=== PATIENT | female | born 1995 | race Caucasian/White ===

== ENCOUNTER 2016-10-24 16:37 | Emergency (ER) | payer MEDICAID ==
[~2016-10-24] VITALS: Ht 162.6 cm; Wt 117.9 kg
[~2016-10-24 16:37] MED LIST: ACHD5005 PO; AMOX500C2 PO; CEPH-507 PO; DEPO; DOXY100C2 PO; FAMO-119 PO; FLUT9.9S NSEACH; HYDR-3812 PO; HYDR-707 PO; METHYLERGONOVINE 0.2 MG PO; NAPR-243 PO; NITR-65 PO; OMEP20CA12 PO; PRD20T PO; PREN-93 PO; RANI25VI2 IJ
--- OUTSIDE RECORDS SUMMARY | 2016-10-24 16:46 | XMS REPORT ---
Author Author JENNY SHINE Organization [facility] Address [address] [place] [address] Care Team Providers Care Rn Angiography Name Role Phone JENNY SHINE Unavailable PROBLEMS Type Condition ICD9-CM Code [id number] Code Onset Dates Condition Status SNOMED Code Problem Contact dermatitis and other eczema, due to unspecified cause 692.9 Active 42522294 Problem Cellulitis and abscess of leg, except foot 682.6 Active 764158360 Problem Candidiasis of skin and nails 112.3 Active 786217618 Problem Supervision of normal first V22.0 Active 381450100 Problem Need for prophylactic vaccination and inoculation, Influenza V04.81 Active 325773879 Problem Dizziness and giddiness 780.4 Active 092844587 Problem Acute tonsillitis 463 Active 07101075 Problem examination or test, negative result V72.41 Active 526103769 Problem Attention deficit disorder of childhood without mention of hyperactivity 314.00 Active 94601805 Problem Surveillance of other previously prescribed contraceptive method V25.49 Active 834817699 Problem Dysthymic disorder 300.4 Active 63559962 Assessment test positive Z32.01 20 Dec, 2016 Active 670795298 Problem Other malaise and fatigue 780.79 Active 763762318 Problem Acute sinusitis, unspecified 461.9 Active 77756697 Problem Unspecified gastritis and gastroduodenitis without mention of hemorrhage 535.50 Active 185068818 Problem Other general counseling and advice for contraceptive management V25.09 Active 644523024 Problem Cough 786.2 Active 82120777 Problem examination or test, positive result V72.42 Active 500917174 ALLERGIES No Known Allergies SOCIAL HISTORY No smoking Hx information available PLAN OF CARE VITAL SIGNS MEDICATIONS No Known Medications RESULTS Name Result Date Reference Range TEST, URINE (IN HOUSE) 2016-01-03 RESULTS POSITIVE Lot # [id number] Control + Exp date Jun 2017 PROCEDURES Procedure Date Ordered Related Diagnosis Body Site URINE TEST Jan 03, 2016 IMMUNIZATIONS No Known Immunizations
--- OUTSIDE RECORDS SUMMARY | 2016-10-24 16:46 | XMS REPORT ---
Author Author ERMA JAMES Organization [employer] Address Unknown Phone Unavailable Care Team Providers Care Heel Lining Paster Name Role Phone ERMA JAMES CP Unavailable Allergies, Adverse Reactions, Alerts Substance Reaction Event Type N.K.D.A. Info Not Available Non Drug Allergy Problems Problem Type Condition Code Onset Dates Condition Status Problem examination or test, positive result V72.42 Active Problem Candidiasis of skin and nails 112.3 Active Problem Contact dermatitis and other eczema, due to unspecified cause 692.9 Active Problem Need for prophylactic vaccination and inoculation, Influenza V04.81 Active Problem examination or test, negative result V72.41 Active Problem Supervision of normal first V22.0 Active Problem Acute tonsillitis 463 Active Problem Cellulitis and abscess of leg, except foot 682.6 Active Problem Attention deficit disorder of childhood without mention of hyperactivity 314.00 Active Problem Dizziness and giddiness 780.4 Active Problem Surveillance of other previously prescribed contraceptive method V25.49 Active Problem Cough 786.2 Active Problem Other malaise and fatigue 780.79 Active Problem Dysthymic disorder 300.4 Active Problem Acute sinusitis, unspecified 461.9 Active Problem Unspecified gastritis and gastroduodenitis without mention of hemorrhage 535.50 Active Problem Other general counseling and advice for contraceptive management V25.09 Active Medications Medication Code System Code Instructions Start Date End Date Status Dosage Folic Acid [facility] [address]-64 1 MG Orally Once a day 3 tablet Progesterone Micronized [facility] [address]-23 200 MG Orally Once a day 1 capsule at bedtime Vitamin [facility] [address]4051-52451 27-0.8 MG Orally not defined Results No Known Results Summary Purpose [employer] Submission
--- OUTSIDE RECORDS SUMMARY | 2016-10-24 16:48 | XMS REPORT | Continuity of Care Document ---
Author Author [facility] Address Unknown Phone Unavailable Allergies Active Description Code Type Severity Reaction Onset Reported/Identified Relationship to Patient Clinical Status Yes No Known Drug Allergies [id number] Drug Allergy Unknown N/ A 01/22/2016 Medications Problems Date Dx Coded Attending Type Code Diagnosis Diagnosed By 12/17/2007 V20.2 Well Child, Routine 12/17/2007 CESIA REGAN DO V20.2 Well Child, Routine 12/17/2007 V20.2 Well Child, Routine 12/17/2007 GABBY GARDNER APRN V20.2 Well Child, Routine 12/17/2007 GABBY GARDNER APRN V20.2 Well Child, Routine 12/17/2007 JENNY SHINE APRN V20.2 Well Child, Routine 12/17/2007 V20.2 Well Child, Routine 12/17/2007 V20.2 Well Child, Routine 12/17/2007 SHASHA GUTIERREZ APRN V20.2 Well Child, Routine 12/17/2007 CESIA REGAN DO V20.2 Well Child, Routine 12/17/2007 GABBY GARDNER APRN R V20.2 Well Child, Routine 12/17/2007 JENNY SHINE APRN V20.2 Well Child, Routine 12/17/2007 CESIA REGAN DO V20.2 Well Child, Routine 12/17/2007 NIKKI LAZARO APRN V20.2 Well Child, Routine 12/22/2007 132.0 Lice Head 12/22/2007 382.00 Otitis Media Acute Without Spontaneous Rupture Eardrum 12/22/2007 709.9 Dermatitis Other Skin Disorders 12/22/2007 CESIA REGAN DO 132.0 Lice Head 12/22/2007 CESIA REGAN DO 382.00 Otitis Media Acute Without Spontaneous Rupture Eardrum 12/22/2007 CESIA REGAN DO 709.9 Dermatitis Other Skin Disorders 12/22/2007 132.0 Lice Head 12/22/2007 382.00 Otitis Media Acute Without Spontaneous Rupture Eardrum 12/22/2007 709.9 Dermatitis Other Skin Disorders 12/22/2007 GABBY GARDNER APRN R 132.0 Lice Head 12/22/2007 CEHLSEA GARDNER APRNIA R 382.00 Otitis Media Acute Without Spontaneous Rupture Eardrum 12/22/2007 GABBY GARDNER APRN R 709.9 Dermatitis Other Skin Disorders 12/22/2007 CHELSEA GARDNER APRNIA R 132.0 Lice Head 12/22/2007 CHELSEA GARDNER APRNIA R 382.00 Otitis Media Acute Without Spontaneous Rupture Eardrum 12/22/2007 GABBY GARDNER APRN R 709.9 Dermatitis Other Skin Disorders 12/22/2007 JENNY SHINE APRN S 132.0 Lice Head 12/22/2007 JENNY SHINE APRN S 382.00 Otitis Media Acute Without Spontaneous Rupture Eardrum 12/22/2007 JENNY SHINE APRN S 709.9 Dermatitis Other Skin Disorders 12/22/2007 132.0 Lice Head 12/22/2007 382.00 Otitis Media Acute Without Spontaneous Rupture Eardrum 12/22/2007 709.9 Dermatitis Other Skin Disorders 12/22/2007 132.0 Lice Head 12/22/2007 382.00 Otitis Media Acute Without Spontaneous Rupture Eardrum 12/22/2007 709.9 Dermatitis Other Skin Disorders 12/22/2007 SHASHA GUTIERREZ APRN 132.0 Lice Head 12/22/2007 SHASHA GUTIERREZ APRN 382.00 Otitis Media Acute Without Spontaneous Rupture Eardrum 12/22/2007 SHASHA GUTIERREZ APRN 709.9 Dermatitis Other Skin Disorders 12/22/2007 REGAN DO CESIA K 132.0 Lice Head 12/22/2007 REGAN DO CESIA K 382.00 Otitis Media Acute Without Spontaneous Rupture Eardrum 12/22/2007 REGAN DO CESIA K 709.9 Dermatitis Other Skin Disorders 12/22/2007 GABBY GARDNER APRN R 132.0 Lice Head 12/22/2007 GABBY GARDNER APRN R 382.00 Otitis Media Acute Without Spontaneous Rupture Eardrum 12/22/2007 GARDNER CROWN PRESSER, GABBY R 709.9 Dermatitis Other Skin Disorders 12/22/2007 FÁTIMA CAIN, JENNY S 132.0 Lice Head 12/22/2007 FÁTIMAMARILYN CAIN, JENNY S 382.00 Otitis Media Acute Without Spontaneous Rupture Eardrum 12/22/2007 FÁTIMAMARILYN CAIN, JENNY S 709.9 Dermatitis Other Skin Disorders 12/22/2007 REGAN DO CESIA K 132.0 Lice Head 12/22/2007 REGAN DO, CESIA K 382.00 Otitis Media Acute Without Spontaneous Rupture Eardrum 12/22/2007 REGAN DO, CESIA K 709.9 Dermatitis Other Skin Disorders 12/22/2007 TEJAS CROWN PRESSER, NIKKI A 132.0 Lice Head 12/22/2007 TEJAS CROWN PRESSER, NIKKI A 382.00 Otitis Media Acute Without Spontaneous Rupture Eardrum 12/22/2007 TEJAS CAIN, NIKKI A 709.9 Dermatitis Other Skin Disorders 01/22/2008 465.9 Upper Respiratory Infection 01/22/2008 787.03 Vomiting Alone 01/22/2008 DELILAH REGAN DOA K 465.9 Upper Respiratory Infection 01/22/2008 DELILAH REGAN DOA K 787.03 Vomiting Alone 01/22/2008 465.9 Upper Respiratory Infection 01/22/2008 787.03 Vomiting Alone 01/22/2008 CHELSEA GARDNER APRNIA R 465.9 Upper Respiratory Infection 01/22/2008 CHELSEA GARDNER APRNIA R 787.03 Vomiting Alone 01/22/2008 CHELSEA GARDNER APRNIA R 465.9 Upper Respiratory Infection 01/22/2008 GABBY GARDNER APRN R 787.03 Vomiting Alone 01/22/2008 IESHA SHINE APRNNDA S 465.9 Upper Respiratory Infection 01/22/2008 FÁTIMA MOTTA JENNY S 787.03 Vomiting Alone 01/22/2008 465.9 Upper Respiratory Infection 01/22/2008 787.03 Vomiting Alone 01/22/2008 465.9 Upper Respiratory Infection 01/22/2008 787.03 Vomiting Alone 01/22/2008 SHASHA GUTIERREZ APRN 465.9 Upper Respiratory Infection 01/22/2008 SHASHA GUTIERREZ APRN 787.03 Vomiting Alone 01/22/2008 CESIA REGAN DO K 465.9 Upper Respiratory Infection 01/22/2008 DELILAH REGAN DOA K 787.03 Vomiting Alone 01/22/2008 CHELSEA GARDNER APRNIA R 465.9 Upper Respiratory Infection 01/22/2008 GABBY GARDNER APRN R 787.03 Vomiting Alone 01/22/2008 IESHA SHINE APRNNDA S 465.9 Upper Respiratory Infection 01/22/2008 IESHA SHINE APRNNDA S 787.03 Vomiting Alone 01/22/2008 DELILAH REGAN DOA K 465.9 Upper Respiratory Infection 01/22/2008 DELILAH REGAN DOA K 787.03 Vomiting Alone 01/22/2008 TEJASTAMMIE Watt APRNIDI A 465.9 Upper Respiratory Infection 01/22/2008 TEJASTAMMIE Watt APRNIDI A 787.03 Vomiting Alone 03/23/2008 462 Pharyngitis Acute 03/23/2008 DELILAH REGAN DOA K 462 Pharyngitis Acute 03/23/2008 462 Pharyngitis Acute 03/23/2008 GABBY GARDNER APRN R 462 Pharyngitis Acute 03/23/2008 GABBY GARDNER APRN R 462 Pharyngitis Acute 03/23/2008 JENNY SHINE APRN S 462 Pharyngitis Acute 03/23/2008 462 Pharyngitis Acute 03/23/2008 462 Pharyngitis Acute 03/23/2008 SHASHA GUTIERREZ APRN 462 Pharyngitis Acute 03/23/2008 CESIA REGAN DO K 462 Pharyngitis Acute 03/23/2008 GABBY GARDNER APRN R 462 Pharyngitis Acute 03/23/2008 JENNY SHINE APRN S 462 Pharyngitis Acute 03/23/2008 DELILAH REGAN DOA K 462 Pharyngitis Acute 03/23/2008 TEJASShukri MOTTA NIKKI A 462 Pharyngitis Acute 06/02/2008 313.81 Cd Oppositional Defiant 06/02/2008 CESIA REGAN DO K 313.81 Cd Oppositional Defiant 06/02/2008 313.81 Cd Oppositional Defiant 06/02/2008 GABBY GARDNER APRN R 313.81 Cd Oppositional Defiant 06/02/2008 GABBY GARDNER APRN R 313.81 Cd Oppositional Defiant 06/02/2008 JENNY SHINE APRN S 313.81 Cd Oppositional Defiant 06/02/2008 313.81 Cd Oppositional Defiant 06/02/2008 313.81 Cd Oppositional Defiant 06/02/2008 SHASHA GUTIERREZ APRN 313.81 Cd Oppositional Defiant 06/02/2008 CESIA REGAN DO K 313.81 Cd Oppositional Defiant 06/02/2008 GABBY GARDNER APRN R 313.81 Cd Oppositional Defiant 06/02/2008 JENNY SHINE APRN S 313.81 Cd Oppositional Defiant 06/02/2008 DELILAH REGAN DOA K 313.81 Cd Oppositional Defiant 06/02/2008 NIKKI LAZARO APRN A 313.81 Cd Oppositional Defiant 06/07/2008 311 DEPRESSION 06/07/2008 DELILAH REGAN DOA K 311 DEPRESSION 06/07/2008 311 DEPRESSION 06/07/2008 CHELSEA GARDNER APRNIA R 311 DEPRESSION 06/07/2008 GABBY GARDNER APRN R 311 DEPRESSION 06/07/2008 JENNY SHINE APRN S 311 DEPRESSION 06/07/2008 311 DEPRESSION 06/07/2008 311 DEPRESSION 06/07/2008 SHASHA GUTIERREZ APRN 311 DEPRESSION 06/07/2008 REGAN DELILAH OLIVEIRAA K 311 DEPRESSION 06/07/2008 CHELSEA GARDNER APRNIA R 311 DEPRESSION 06/07/2008 PÉREZ SHINE APRNA S 311 DEPRESSION 06/07/2008 REGAN DO, CESIA K 311 DEPRESSION 06/07/2008 NIKKI LAZARO APRN A 311 DEPRESSION 07/27/2008 296.32 Mo Depressive Recurrent Moderate 07/27/2008 DELILAH REGAN DOA K 296.32 Mo Depressive Recurrent Moderate 07/27/2008 296.32 Mo Depressive Recurrent Moderate 07/27/2008 GABBY GARDNER APRN R 296.32 Mo Depressive Recurrent Moderate 07/27/2008 GABBY GARDNER APRN R 296.32 Mo Depressive Recurrent Moderate 07/27/2008 JENNY SHINE APRN S 296.32 Mo Depressive Recurrent Moderate 07/27/2008 296.32 Mo Depressive Recurrent Moderate 07/27/2008 296.32 Mo Depressive Recurrent Moderate 07/27/2008 SHASHA GUTIERREZ APRN 296.32 Mo Depressive Recurrent Moderate 07/27/2008 CESIA REGAN DO K 296.32 Mo Depressive Recurrent Moderate 07/27/2008 GABBY GARDNER APRN R 296.32 Mo Depressive Recurrent Moderate 07/27/2008 JENNY SHINE APRN S 296.32 Mo Depressive Recurrent Moderate 07/27/2008 CESIA REGAN DO K 296.32 Mo Depressive Recurrent Moderate 07/27/2008 NIKKI LAZARO APRN A 296.32 Mo Depressive Recurrent Moderate 08/02/2008 493.02 Asthma Extrinsic - With Acute Exacerbation 08/02/2008 CESIA REGAN DO K 493.02 Asthma Extrinsic - With Acute Exacerbation 08/02/2008 493.02 Asthma Extrinsic - With Acute Exacerbation 08/02/2008 GABBY GARDNER APRN R 493.02 Asthma Extrinsic - With Acute Exacerbation 08/02/2008 GABBY GARDNER APRN R 493.02 Asthma Extrinsic - With Acute Exacerbation 08/02/2008 JENNY SHINE APRN 493.02 Asthma Extrinsic - With Acute Exacerbation 08/02/2008 493.02 Asthma Extrinsic - With Acute Exacerbation 08/02/2008 493.02 Asthma Extrinsic - With Acute Exacerbation 08/02/2008 SHASHA GUTIERREZ APRN 493.02 Asthma Extrinsic - With Acute Exacerbation 08/02/2008 CESIA REGAN DO K 493.02 Asthma Extrinsic - With Acute Exacerbation 08/02/2008 GABBY GARDNER APRN R 493.02 Asthma Extrinsic - With Acute Exacerbation 08/02/2008 JENNY SHINE APRN S 493.02 Asthma Extrinsic - With Acute Exacerbation 08/02/2008 CESIA REGAN DO K 493.02 Asthma Extrinsic - With Acute Exacerbation 08/02/2008 NIKKI LAZARO APRN A 493.02 Asthma Extrinsic - With Acute Exacerbation 09/10/2008 477.9 ALLERGIC RHINITIS 09/10/2008 CESIA REGAN DO K 477.9 ALLERGIC RHINITIS 09/10/2008 477.9 ALLERGIC RHINITIS 09/10/2008 GABBY GARDNER APRN 477.9 ALLERGIC RHINITIS 09/10/2008 GABBY GARDNER APRN 477.9 ALLERGIC RHINITIS 09/10/2008 JENNY SHINE APRN 477.9 ALLERGIC RHINITIS 09/10/2008 477.9 ALLERGIC RHINITIS 09/10/2008 477.9 ALLERGIC RHINITIS 09/10/2008 SHASHA GUTIERREZ APRN 477.9 ALLERGIC RHINITIS 09/10/2008 CESIA REGAN DO 477.9 ALLERGIC RHINITIS 09/10/2008 GABBY GARDNER APRN 477.9 ALLERGIC RHINITIS 09/10/2008 JENNY SHINE APRN 477.9 ALLERGIC RHINITIS 09/10/2008 CESIA REGAN DO 477.9 ALLERGIC RHINITIS 09/10/2008 NIKKI LAZARO APRN A 477.9 ALLERGIC RHINITIS 12/09/2008 V25.49 Gynecologic Service Prescrip Of Contracept Agent - Repeat Rx 12/09/2008 CESIA REGAN DO V25.49 Gynecologic Service Prescrip Of Contracept Agent - Repeat Rx 12/09/2008 V25.49 Gynecologic Service Prescrip Of Contracept Agent - Repeat Rx 12/09/2008 GABBY GARDNER APRN V25.49 Gynecologic Service Prescrip Of Contracept Agent - Repeat Rx 12/09/2008 GABBY GARDNER APRN V25.49 Gynecologic Service Prescrip Of Contracept Agent - Repeat Rx 12/09/2008 JENNY SHINE APRN V25.49 Gynecologic Service Prescrip Of Contracept Agent - Repeat Rx 12/09/2008 V25.49 Gynecologic Service Prescrip Of Contracept Agent - Repeat Rx 12/09/2008 V25.49 Gynecologic Service Prescrip Of Contracept Agent - Repeat Rx 12/09/2008 SHASHA GUTIERREZ APRN V25.49 Gynecologic Service Prescrip Of Contracept Agent - Repeat Rx 12/09/2008 CESIA REGAN DO V25.49 Gynecologic Service Prescrip Of Contracept Agent - Repeat Rx 12/09/2008 GABBY GARDNER APRN V25.49 Gynecologic Service Prescrip Of Contracept Agent - Repeat Rx 12/09/2008 JENNY SHINE APRN V25.49 Gynecologic Service Prescrip Of Contracept Agent - Repeat Rx 12/09/2008 CESIA REGAN DO V25.49 Gynecologic Service Prescrip Of Contracept Agent - Repeat Rx 12/09/2008 NIKKI LAZARO APRN A V25.49 Gynecologic Service Prescrip Of Contracept Agent - Repeat Rx 12/29/2008 789.00 Abdominal Pain 12/29/2008 CESIA REGAN DO 789.00 Abdominal Pain 12/29/2008 789.00 Abdominal Pain 12/29/2008 GABBY GARDNER APRN 789.00 Abdominal Pain 12/29/2008 GABBY GARDNER APRN R 789.00 Abdominal Pain 12/29/2008 ÁFTIMA MOTTA, JENNY S 789.00 Abdominal Pain 12/29/2008 789.00 Abdominal Pain 12/29/2008 789.00 Abdominal Pain 12/29/2008 SHASHA GUTIERREZ APRN 789.00 Abdominal Pain 12/29/2008 REGAN DO, CESIA K 789.00 Abdominal Pain 12/29/2008 GABBY GARDNER APRN R 789.00 Abdominal Pain 12/29/2008 PÉREZ SHINE APRNA S 789.00 Abdominal Pain 12/29/2008 REGAN DO, CESIA K 789.00 Abdominal Pain 12/29/2008 TEJASTAMMIE GARCIA APRNIDI A 789.00 Abdominal Pain 01/19/2009 464.00 Laryngitis 01/19/2009 REGAN DELILAH OLIVEIRAA K 464.00 Laryngitis 01/19/2009 464.00 Laryngitis 01/19/2009 GABBY GARDNER APRN R 464.00 Laryngitis 01/19/2009 GABBY GARDNER APRN R 464.00 Laryngitis 01/19/2009 PÉREZ SHINE APRNA S 464.00 Laryngitis 01/19/2009 464.00 Laryngitis 01/19/2009 464.00 Laryngitis 01/19/2009 SHASHA GUTIERREZ APRN 464.00 Laryngitis 01/19/2009 REGAN DELILAH OLIVEIRAA K 464.00 Laryngitis 01/19/2009 CHELSEA GARDNER APRNIA R 464.00 Laryngitis 01/19/2009 IESHA SHINE APRNNDA S 464.00 Laryngitis 01/19/2009 REGAN DO CESIA K 464.00 Laryngitis 01/19/2009 TEJASJOSE MOTTA NIKKI A 464.00 Laryngitis 03/02/2009 289.3 Primary Lymphadenitis 03/02/2009 REGAN DO CESIA K 289.3 Primary Lymphadenitis 03/02/2009 289.3 Primary Lymphadenitis 03/02/2009 CHELSEA GARDNER APRNIA R 289.3 Primary Lymphadenitis 03/02/2009 CHELSEA GARDNER APRNIA R 289.3 Primary Lymphadenitis 03/02/2009 IESHA SHINE APRNNDA S 289.3 Primary Lymphadenitis 03/02/2009 289.3 Primary Lymphadenitis 03/02/2009 289.3 Primary Lymphadenitis 03/02/2009 SHASHA GUTIERREZ APRN 289.3 Primary Lymphadenitis 03/02/2009 REGAN DO, CESIA K 289.3 Primary Lymphadenitis 03/02/2009 GARDNER CROWN PRESSER, GABBY R 289.3 Primary Lymphadenitis 03/02/2009 FÁTIMA CROWN PRESSER, JENNY S 289.3 Primary Lymphadenitis 03/02/2009 REGAN DO, CESIA K 289.3 Primary Lymphadenitis 03/02/2009 TEJAS CROWN PRESSER, NIKKI A 289.3 Primary Lymphadenitis 03/03/2009 785.6 Lymphadenopathy 03/03/2009 REGAN DO, CESIA K 785.6 Lymphadenopathy 03/03/2009 785.6 Lymphadenopathy 03/03/2009 KENDRA CAIN, GABBY R 785.6 Lymphadenopathy 03/03/2009 KENDRA CAIN, GABBY R 785.6 Lymphadenopathy 03/03/2009 FÁTIMA CROWN PRESSER, JENNY S 785.6 Lymphadenopathy 03/03/2009 785.6 Lymphadenopathy 03/03/2009 785.6 Lymphadenopathy 03/03/2009 SHASHA GUTIERREZ APRN 785.6 Lymphadenopathy 03/03/2009 REGAN DO, CESIA K 785.6 Lymphadenopathy 03/03/2009 KENDRA CAIN, GABBY R 785.6 Lymphadenopathy 03/03/2009 FÁTIMA CROWN PRESSER, JENNY S 785.6 Lymphadenopathy 03/03/2009 REGAN DO, CESIA K 785.6 Lymphadenopathy 03/03/2009 TEJSA CROWN PRESSER, NIKKI A 785.6 Lymphadenopathy 05/20/2009 493.90 ASTHMA MODERATE PERSISTENT 05/20/2009 REGAN DO, CESIA K 493.90 ASTHMA MODERATE PERSISTENT 05/20/2009 493.90 ASTHMA MODERATE PERSISTENT 05/20/2009 ANITHA GARDNER APRNRICIA R 493.90 ASTHMA MODERATE PERSISTENT 05/20/2009 ANITHA GARDNER APRNRICIA R 493.90 ASTHMA MODERATE PERSISTENT 05/20/2009 IESHA SHINE APRNNDA S 493.90 ASTHMA MODERATE PERSISTENT 05/20/2009 493.90 ASTHMA MODERATE PERSISTENT 05/20/2009 493.90 ASTHMA MODERATE PERSISTENT 05/20/2009 SHASHA GUTIERREZ APRN 493.90 ASTHMA MODERATE PERSISTENT 05/20/2009 REGAN DO, CESIA K 493.90 ASTHMA MODERATE PERSISTENT 05/20/2009 ANITHA GARDNER APRNRICIA R 493.90 ASTHMA MODERATE PERSISTENT 05/20/2009 FÁTIMA MOTTA JENNY S 493.90 ASTHMA MODERATE PERSISTENT 05/20/2009 DELILAH REGAN DOA K 493.90 ASTHMA MODERATE PERSISTENT 05/20/2009 TEJASTAMMIE Watt APRNIDI A 493.90 ASTHMA MODERATE PERSISTENT 06/07/2009 493.92 Asthma With Acute Exacerbation 06/07/2009 DELILAH REGAN DOA K 493.92 Asthma With Acute Exacerbation 06/07/2009 493.92 Asthma With Acute Exacerbation 06/07/2009 CHELSEA GARDNER APRNIA R 493.92 Asthma With Acute Exacerbation 06/07/2009 CHELSEA GARDNER APRNIA R 493.92 Asthma With Acute Exacerbation 06/07/2009 PÉREZ SHINE APRNA S 493.92 Asthma With Acute Exacerbation 06/07/2009 493.92 Asthma With Acute Exacerbation 06/07/2009 493.92 Asthma With Acute Exacerbation 06/07/2009 SHASHA GUTIERREZ APRN 493.92 Asthma With Acute Exacerbation 06/07/2009 CESIA REGAN DO K 493.92 Asthma With Acute Exacerbation 06/07/2009 CHELSEA GARDNER APRNIA R 493.92 Asthma With Acute Exacerbation 06/07/2009 IESHA SHINE APRNNDA S 493.92 Asthma With Acute Exacerbation 06/07/2009 CESIA REGAN DO K 493.92 Asthma With Acute Exacerbation 06/07/2009 NIKKI LAZARO APRN A 493.92 Asthma With Acute Exacerbation 08/25/2009 787.91 Diarrhea 08/25/2009 CESIA REGAN DO K 787.91 Diarrhea 08/25/2009 787.91 Diarrhea 08/25/2009 ANITHA GARDNER APRNRICIA R 787.91 Diarrhea 08/25/2009 ANITHA GARDNER APRNRICIA R 787.91 Diarrhea 08/25/2009 IESHA SHINE APRNNDA S 787.91 Diarrhea 08/25/2009 787.91 Diarrhea 08/25/2009 787.91 Diarrhea 08/25/2009 SHASHA GUTIERREZ APRN 787.91 Diarrhea 08/25/2009 CESIA REGAN DO K 787.91 Diarrhea 08/25/2009 CHELSEA GARDNER APRNIA R 787.91 Diarrhea 08/25/2009 IESHA SHINE APRNNDA S 787.91 Diarrhea 08/25/2009 DELILAH REGAN DOA K 787.91 Diarrhea 08/25/2009 TEJAS CROWN PRESSER, NIKKI A 787.91 Diarrhea 11/24/2009 278.00 OBESITY UNSPECIFIED 11/24/2009 JASS OLIVEIRA CESIA K 278.00 OBESITY UNSPECIFIED 11/24/2009 278.00 OBESITY UNSPECIFIED 11/24/2009 GABBY GARDNER APRN R 278.00 OBESITY UNSPECIFIED 11/24/2009 GABBY GARDNER APRN R 278.00 OBESITY UNSPECIFIED 11/24/2009 PÉREZ SHINE APRNA S 278.00 OBESITY UNSPECIFIED 11/24/2009 278.00 OBESITY UNSPECIFIED 11/24/2009 278.00 OBESITY UNSPECIFIED 11/24/2009 SHASHA GUTIERREZ APRN 278.00 OBESITY UNSPECIFIED 11/24/2009 CESIA REGAN DO K 278.00 OBESITY UNSPECIFIED 11/24/2009 GABBY GARDNER APRN R 278.00 OBESITY UNSPECIFIED 11/24/2009 JENNY SHINE APRN S 278.00 OBESITY UNSPECIFIED 11/24/2009 DELILAH REGAN DOA K 278.00 OBESITY UNSPECIFIED 11/24/2009 NIKKI LAZARO APRN A 278.00 OBESITY UNSPECIFIED 01/03/2010 780.79 Malaise And Fatigue 01/03/2010 DELILAH REGAN DOA K 780.79 Malaise And Fatigue 01/03/2010 780.79 Malaise And Fatigue 01/03/2010 GABBY GARDNER APRN R 780.79 Malaise And Fatigue 01/03/2010 GABBY GARDNER APRN R 780.79 Malaise And Fatigue 01/03/2010 JENNY SHINE APRN S 780.79 Malaise And Fatigue 01/03/2010 780.79 Malaise And Fatigue 01/03/2010 780.79 Malaise And Fatigue 01/03/2010 SHASHA GUTIERREZ APRN 780.79 Malaise And Fatigue 01/03/2010 DELILAH REGAN DOA K 780.79 Malaise And Fatigue 01/03/2010 GABBY GARDNER APRN R 780.79 Malaise And Fatigue 01/03/2010 JENNY SHINE APRN S 780.79 Malaise And Fatigue 01/03/2010 REGAN DO, CESIA K 780.79 Malaise And Fatigue 01/03/2010 TEJAS CROWN PRESSER, NIKKI A 780.79 Malaise And Fatigue 02/28/2010 786.2 Cough 02/28/2010 V04.81 Flu Shot 02/28/2010 REGAN DO, CESIA K 786.2 Cough 02/28/2010 REGAN DO, CESIA K V04.81 Flu Shot 02/28/2010 786.2 Cough 02/28/2010 V04.81 Flu Shot 02/28/2010 KENDRA CROWN PRESSER, GABBY R 786.2 Cough 02/28/2010 GARDNER CROWN PRESSER, GABBY R V04.81 Flu Shot 02/28/2010 GARDNER CROWN PRESSER, GABBY R 786.2 Cough 02/28/2010 GARDNER CROWN PRESSER, GABBY R V04.81 Flu Shot 02/28/2010 FÁTIMA MOTTA JENNY S 786.2 Cough 02/28/2010 FÁTIMA CAIN, JENNY S V04.81 Flu Shot 02/28/2010 786.2 Cough 02/28/2010 V04.81 Flu Shot 02/28/2010 786.2 Cough 02/28/2010 V04.81 Flu Shot 02/28/2010 BRENDA MOTTA SHASHA T 786.2 Cough 02/28/2010 BRENDA KALIA SHASHA T V04.81 Flu Shot 02/28/2010 REGAN DO CESIA K 786.2 Cough 02/28/2010 REGAN DO, CESIA K V04.81 Flu Shot 02/28/2010 KENDRA MOTTA, GABBY R 786.2 Cough 02/28/2010 KENDRA MOTTA GABBY R V04.81 Flu Shot 02/28/2010 FÁTIMA MOTTA JENNY S 786.2 Cough 02/28/2010 FÁTIMA CROWN PRESSER JENNY S V04.81 Flu Shot 02/28/2010 REGNA DO, CESIA K 786.2 Cough 02/28/2010 REGAN DO, CESIA K V04.81 Flu Shot 02/28/2010 TEJAS CROWN PRESSER, NIKKI A 786.2 Cough 02/28/2010 TEJAS CROWN PRESSER, NIKKI A V04.81 Flu Shot 06/07/2010 599.0 Urinary Tract Infection 06/07/2010 REGAN DO CESIA K 599.0 Urinary Tract Infection 06/07/2010 599.0 Urinary Tract Infection 06/07/2010 GABBY GARDNER APRN R 599.0 Urinary Tract Infection 06/07/2010 CHELSEA GARDNER APRNIA R 599.0 Urinary Tract Infection 06/07/2010 PÉREZ SHINE APRNA S 599.0 Urinary Tract Infection 06/07/2010 599.0 Urinary Tract Infection 06/07/2010 599.0 Urinary Tract Infection 06/07/2010 SHASHA GUTIERREZ APRN 599.0 Urinary Tract Infection 06/07/2010 DELILAH REGAN DOA K 599.0 Urinary Tract Infection 06/07/2010 GABBY GARDNER APRN R 599.0 Urinary Tract Infection 06/07/2010 JENNY SHINE APRN S 599.0 Urinary Tract Infection 06/07/2010 DELILAH REGAN DOA K 599.0 Urinary Tract Infection 06/07/2010 NIKKI LAZARO APRN A 599.0 Urinary Tract Infection 06/21/2010 724.2 Lumbago/ Low Back Pain 06/21/2010 REGAN DELILAH OLIVEIRAA K 724.2 Lumbago/ Low Back Pain 06/21/2010 724.2 Lumbago/ Low Back Pain 06/21/2010 CHELSEA GARDNER APRNIA R 724.2 Lumbago/ Low Back Pain 06/21/2010 CHELSEA GARDNER APRNIA R 724.2 Lumbago/ Low Back Pain 06/21/2010 PÉREZ SIHNE APRNA S 724.2 Lumbago/ Low Back Pain 06/21/2010 724.2 Lumbago/ Low Back Pain 06/21/2010 724.2 Lumbago/ Low Back Pain 06/21/2010 SHASHA GUTIERREZ APRN 724.2 Lumbago/ Low Back Pain 06/21/2010 REGAN DO CESIA K 724.2 Lumbago/ Low Back Pain 06/21/2010 CHELSEA GARDNER APRNIA R 724.2 Lumbago/ Low Back Pain 06/21/2010 IESHA SHINE APRNNDA S 724.2 Lumbago/ Low Back Pain 06/21/2010 REGAN DO CESIA K 724.2 Lumbago/ Low Back Pain 06/21/2010 TAMMIE LAZARO APRNIDI A 724.2 Lumbago/ Low Back Pain 07/10/2010 736.81 UNEQUAL LEG LENGTH (ACQUIRED) 07/10/2010 737.30 SCOLIOSIS (AND KYPHOSCOLIOSIS) IDIOPATHIC 07/10/2010 CESIA REGAN DO K 736.81 UNEQUAL LEG LENGTH (ACQUIRED) 07/10/2010 CESIA REGAN DO K 737.30 SCOLIOSIS (AND KYPHOSCOLIOSIS) IDIOPATHIC 07/10/2010 736.81 UNEQUAL LEG LENGTH (ACQUIRED) 07/10/2010 737.30 SCOLIOSIS (AND KYPHOSCOLIOSIS) IDIOPATHIC 07/10/2010 CHELSEA GARDNER APRNIA R 736.81 UNEQUAL LEG LENGTH (ACQUIRED) 07/10/2010 CHELSEA GARDNER APRNIA R 737.30 SCOLIOSIS (AND KYPHOSCOLIOSIS) IDIOPATHIC 07/10/2010 CHELSEA GARDNER APRNIA R 736.81 UNEQUAL LEG LENGTH (ACQUIRED) 07/10/2010 CHELSEA GARDNER APRNIA R 737.30 SCOLIOSIS (AND KYPHOSCOLIOSIS) IDIOPATHIC 07/10/2010 JENNY SHINE APRN S 736.81 UNEQUAL LEG LENGTH (ACQUIRED) 07/10/2010 PÉREZ SHINE APRNA S 737.30 SCOLIOSIS (AND KYPHOSCOLIOSIS) IDIOPATHIC 07/10/2010 736.81 UNEQUAL LEG LENGTH (ACQUIRED) 07/10/2010 737.30 SCOLIOSIS (AND KYPHOSCOLIOSIS) IDIOPATHIC 07/10/2010 736.81 UNEQUAL LEG LENGTH (ACQUIRED) 07/10/2010 737.30 SCOLIOSIS (AND KYPHOSCOLIOSIS) IDIOPATHIC 07/10/2010 SHASHA GUTIERREZ APRN 736.81 UNEQUAL LEG LENGTH (ACQUIRED) 07/10/2010 SHASHA GUTIERREZ APRN 737.30 SCOLIOSIS (AND KYPHOSCOLIOSIS) IDIOPATHIC 07/10/2010 CESIA REGAN DO K 736.81 UNEQUAL LEG LENGTH (ACQUIRED) 07/10/2010 CESIA REGAN DO K 737.30 SCOLIOSIS (AND KYPHOSCOLIOSIS) IDIOPATHIC 07/10/2010 GABBY GARDNER APRN R 736.81 UNEQUAL LEG LENGTH (ACQUIRED) 07/10/2010 CHELSEA GARDNER APRNIA R 737.30 SCOLIOSIS (AND KYPHOSCOLIOSIS) IDIOPATHIC 07/10/2010 PÉREZ SHINE APRNA S 736.81 UNEQUAL LEG LENGTH (ACQUIRED) 07/10/2010 JENNY SHINE APRN S 737.30 SCOLIOSIS (AND KYPHOSCOLIOSIS) IDIOPATHIC 07/10/2010 CESIA REGAN DO K 736.81 UNEQUAL LEG LENGTH (ACQUIRED) 07/10/2010 REGAN CESIA OLIVEIRA K 737.30 SCOLIOSIS (AND KYPHOSCOLIOSIS) IDIOPATHIC 07/10/2010 TAMMIE LAZARO APRNIDI A 736.81 UNEQUAL LEG LENGTH (ACQUIRED) 07/10/2010 TEJAS CAINTAMMIENIKKI A 737.30 SCOLIOSIS (AND KYPHOSCOLIOSIS) IDIOPATHIC 07/26/2010 V72.41 Test Negative Result 07/26/2010 CESIA REGAN DO K V72.41 Test Negative Result 07/26/2010 V72.41 Test Negative Result 07/26/2010 GABBY GARDNER APRN R V72.41 Test Negative Result 07/26/2010 GABBY GARDNER APRN R V72.41 Test Negative Result 07/26/2010 JENNY SHINE APRN S V72.41 Test Negative Result 07/26/2010 V72.41 Test Negative Result 07/26/2010 V72.41 Test Negative Result 07/26/2010 SHASHA GUTIERREZ APRN V72.41 Test Negative Result 07/26/2010 CESIA REGAN DO K V72.41 Test Negative Result 07/26/2010 GABBY GARDNER APRN R V72.41 Test Negative Result 07/26/2010 JENNY SHINE APRN S V72.41 Test Negative Result 07/26/2010 CESIA REGAN DO K V72.41 Test Negative Result 07/26/2010 TEJASNIKKI GARCIA APRN A V72.41 Test Negative Result 09/13/2010 Ot 724.2 LUMBAGO 09/13/2010 Ot 737.30 IDIOPATHIC SCOLIOSIS 09/13/2010 Ot V57.1 PHYSICAL THERAPY NEC 12/21/2010 Ot 599.0 URIN TRACT INFECTION NOS 12/21/2010 Ot 789.03 ABDOMINAL PAIN, RIGHT LOWER QUADRANT 12/26/2010 625.9 Unspecified Symptom Associated With Female Genital Organs 12/26/2010 V58.69 MEDICATION HIGH RISK 12/26/2010 CESIA REGAN DO 625.9 Unspecified Symptom Associated With Female Genital Organs 12/26/2010 CESIA REGAN DO V58.69 MEDICATION HIGH RISK 12/26/2010 625.9 Unspecified Symptom Associated With Female Genital Organs 12/26/2010 V58.69 MEDICATION HIGH RISK 12/26/2010 CHELSEA GARDNER APRNIA R 625.9 Unspecified Symptom Associated With Female Genital Organs 12/26/2010 ANITHA GARDNER APRNRICIA R V58.69 MEDICATION HIGH RISK 12/26/2010 CHELSEA GARDNER APRNIA R 625.9 Unspecified Symptom Associated With Female Genital Organs 12/26/2010 CHELSEA GARDNER APRNIA R V58.69 MEDICATION HIGH RISK 12/26/2010 PÉRZE SHINE APRNA S 625.9 Unspecified Symptom Associated With Female Genital Organs 12/26/2010 IESHA SHINE APRNNDA S V58.69 MEDICATION HIGH RISK 12/26/2010 625.9 Unspecified Symptom Associated With Female Genital Organs 12/26/2010 V58.69 MEDICATION HIGH RISK 12/26/2010 625.9 Unspecified Symptom Associated With Female Genital Organs 12/26/2010 V58.69 MEDICATION HIGH RISK 12/26/2010 SHASHA GUTIERREZ APRN 625.9 Unspecified Symptom Associated With Female Genital Organs 12/26/2010 SHASHA GUTIERREZ APRN V58.69 MEDICATION HIGH RISK 12/26/2010 REGAN DO, CESIA K 625.9 Unspecified Symptom Associated With Female Genital Organs 12/26/2010 REGAN DO, CESIA K V58.69 MEDICATION HIGH RISK 12/26/2010 GABBY GARDNER APRN R 625.9 Unspecified Symptom Associated With Female Genital Organs 12/26/2010 CHELSEA GARDNER APRNIA R V58.69 MEDICATION HIGH RISK 12/26/2010 PÉREZ SHINE APRNA S 625.9 Unspecified Symptom Associated With Female Genital Organs 12/26/2010 IESHA SHINE APRNNDA S V58.69 MEDICATION HIGH RISK 12/26/2010 REGAN DO, CESIA K 625.9 Unspecified Symptom Associated With Female Genital Organs 12/26/2010 REGAN DO, CESIA K V58.69 MEDICATION HIGH RISK 12/26/2010 TEJASShukri MOTTA NIKKI A 625.9 Unspecified Symptom Associated With Female Genital Organs 12/26/2010 TEJASShukri MOTTA NIKKI A V58.69 MEDICATION HIGH RISK 03/29/2011 462 PHARYNGITIS ACUTE 03/29/2011 REGAN DO, CESIA K 462 PHARYNGITIS ACUTE 03/29/2011 462 PHARYNGITIS ACUTE 03/29/2011 GABBY GARDNER APRN R 462 PHARYNGITIS ACUTE 03/29/2011 ANITHA GARDNER APRNRICIA R 462 PHARYNGITIS ACUTE 03/29/2011 PÉREZ SHINE APRNA S 462 PHARYNGITIS ACUTE 03/29/2011 462 PHARYNGITIS ACUTE 03/29/2011 462 PHARYNGITIS ACUTE 03/29/2011 SHASHA GUTIERREZ APRN 462 PHARYNGITIS ACUTE 03/29/2011 CESIA REGAN DO K 462 PHARYNGITIS ACUTE 03/29/2011 GABBY GARDNER APRN R 462 PHARYNGITIS ACUTE 03/29/2011 PÉREZ SHINE APRNA S 462 PHARYNGITIS ACUTE 03/29/2011 DELILAH REGAN DOA K 462 PHARYNGITIS ACUTE 03/29/2011 NIKKI LAZARO APRN A 462 PHARYNGITIS ACUTE 04/14/2011 Ot 780.60 FEVER, UNSPECIFIED 04/14/2011 Ot 786.2 COUGH 04/15/2011 Ot 466.0 ACUTE BRONCHITIS 04/15/2011 Ot 786.2 COUGH 04/23/2011 780.4 DIZZINESS AND VERTIGO 04/23/2011 CESIA REGAN DO K 780.4 DIZZINESS AND VERTIGO 04/23/2011 780.4 DIZZINESS AND VERTIGO 04/23/2011 GABBY GARDNER APRN R 780.4 DIZZINESS AND VERTIGO 04/23/2011 GABBY GARDNER APRN R 780.4 DIZZINESS AND VERTIGO 04/23/2011 JENNY SHINE APRN S 780.4 DIZZINESS AND VERTIGO 04/23/2011 780.4 DIZZINESS AND VERTIGO 04/23/2011 780.4 DIZZINESS AND VERTIGO 04/23/2011 SHASHA GUTIERREZ APRN 780.4 DIZZINESS AND VERTIGO 04/23/2011 CESIA REGAN DO K 780.4 DIZZINESS AND VERTIGO 04/23/2011 GABBY GARDNER APRN R 780.4 DIZZINESS AND VERTIGO 04/23/2011 JENNY SHINE APRN S 780.4 DIZZINESS AND VERTIGO 04/23/2011 CESIA REGAN DO K 780.4 DIZZINESS AND VERTIGO 04/23/2011 TEJAS CROWN PRESSER, NIKKI A 780.4 DIZZINESS AND VERTIGO 05/07/2011 780.79 MALAISE AND FATIGUE 05/07/2011 CESIA REGAN DO 780.79 MALAISE AND FATIGUE 05/07/2011 780.79 MALAISE AND FATIGUE 05/07/2011 GABBY GARDNER APRN R 780.79 MALAISE AND FATIGUE 05/07/2011 GABBY GARDNER APRN R 780.79 MALAISE AND FATIGUE 05/07/2011 JENNY SHINE APRN S 780.79 MALAISE AND FATIGUE 05/07/2011 780.79 MALAISE AND FATIGUE 05/07/2011 780.79 MALAISE AND FATIGUE 05/07/2011 SHASHA GUTIERREZ APRN 780.79 MALAISE AND FATIGUE 05/07/2011 CESIA REGAN DO 780.79 MALAISE AND FATIGUE 05/07/2011 GABBY GARDNER APRN R 780.79 MALAISE AND FATIGUE 05/07/2011 JENNY SHINE APRN 780.79 MALAISE AND FATIGUE 05/07/2011 CESIA REGAN DO 780.79 MALAISE AND FATIGUE 05/07/2011 NIKKI LAZARO APRN A 780.79 MALAISE AND FATIGUE 07/12/2011 V25.49 CONTRACEPTION SURVEILLANCE (REPEAT RX) 07/12/2011 CESIA REGAN DO V25.49 CONTRACEPTION SURVEILLANCE (REPEAT RX) 07/12/2011 V25.49 CONTRACEPTION SURVEILLANCE (REPEAT RX) 07/12/2011 GABBY GARDNER APRN V25.49 CONTRACEPTION SURVEILLANCE (REPEAT RX) 07/12/2011 GABBY GARDNER APRN V25.49 CONTRACEPTION SURVEILLANCE (REPEAT RX) 07/12/2011 JENNY SHINE APRN V25.49 CONTRACEPTION SURVEILLANCE (REPEAT RX) 07/12/2011 V25.49 CONTRACEPTION SURVEILLANCE (REPEAT RX) 07/12/2011 V25.49 CONTRACEPTION SURVEILLANCE (REPEAT RX) 07/12/2011 SHASHA GUTIERREZ APRN V25.49 CONTRACEPTION SURVEILLANCE (REPEAT RX) 07/12/2011 CESIA REGAN DO V25.49 CONTRACEPTION SURVEILLANCE (REPEAT RX) 07/12/2011 GABBY GARDNER APRN V25.49 CONTRACEPTION SURVEILLANCE (REPEAT RX) 07/12/2011 FÁTIMA CROWN PRESSER, JENNY S V25.49 CONTRACEPTION SURVEILLANCE (REPEAT RX) 07/12/2011 CESIA REGAN DO K V25.49 CONTRACEPTION SURVEILLANCE (REPEAT RX) 07/12/2011 NIKKI LAZARO APRN V25.49 CONTRACEPTION SURVEILLANCE (REPEAT RX) 08/06/2011 461.9 SINUSITIS ACUTE 08/06/2011 CESAI REGAN DO K 461.9 SINUSITIS ACUTE 08/06/2011 461.9 SINUSITIS ACUTE 08/06/2011 GABBY GARDNER APRN R 461.9 SINUSITIS ACUTE 08/06/2011 GABBY GARDNER APRN R 461.9 SINUSITIS ACUTE 08/06/2011 JENNY SHINE APRN S 461.9 SINUSITIS ACUTE 08/06/2011 461.9 SINUSITIS ACUTE 08/06/2011 461.9 SINUSITIS ACUTE 08/06/2011 SHASHA GUTIERREZ APRN 461.9 SINUSITIS ACUTE 08/06/2011 CESIA REGAN DO K 461.9 SINUSITIS ACUTE 08/06/2011 GABBY GARDNER APRN R 461.9 SINUSITIS ACUTE 08/06/2011 JENNY SHINE APRN S 461.9 SINUSITIS ACUTE 08/06/2011 CESIA REGAN DO K 461.9 SINUSITIS ACUTE 08/06/2011 NIKKI LAZARO APRN 461.9 SINUSITIS ACUTE 10/11/2011 300.4 DYSTHYMIC DISORDER 10/11/2011 CESIA REGAN DO K 300.4 DYSTHYMIC DISORDER 10/11/2011 300.4 DYSTHYMIC DISORDER 10/11/2011 GABBY GARDNER APRN R 300.4 DYSTHYMIC DISORDER 10/11/2011 GABBY GARDNER APRN R 300.4 DYSTHYMIC DISORDER 10/11/2011 JENNY SHINE APRN S 300.4 DYSTHYMIC DISORDER 10/11/2011 300.4 DYSTHYMIC DISORDER 10/11/2011 300.4 DYSTHYMIC DISORDER 10/11/2011 SHASHA GUTIERREZ APRN 300.4 DYSTHYMIC DISORDER 10/11/2011 CESIA REGAN DO K 300.4 DYSTHYMIC DISORDER 10/11/2011 GABBY GARDNER APRN R 300.4 DYSTHYMIC DISORDER 10/11/2011 JENNY SHINE APRN S 300.4 DYSTHYMIC DISORDER 10/11/2011 JASS OLIVEIRA CESIA K 300.4 DYSTHYMIC DISORDER 10/11/2011 TEJAS CROWN PRESSER, NIKKI A 300.4 DYSTHYMIC DISORDER 02/15/2012 V72.41 TEST NEGATIVE RESULT 02/15/2012 DELILAH REGAN DOA K V72.41 TEST NEGATIVE RESULT 02/15/2012 V72.41 TEST NEGATIVE RESULT 02/15/2012 GABBY GARDNER APRN R V72.41 TEST NEGATIVE RESULT 02/15/2012 GABBY GARDNER APRN R V72.41 TEST NEGATIVE RESULT 02/15/2012 JENNY SHINE APRN S V72.41 TEST NEGATIVE RESULT 02/15/2012 V72.41 TEST NEGATIVE RESULT 02/15/2012 V72.41 TEST NEGATIVE RESULT 02/15/2012 SHASHA GUTIERREZ APRN V72.41 TEST NEGATIVE RESULT 02/15/2012 JASS CESIA OLIVEIRA K V72.41 TEST NEGATIVE RESULT 02/15/2012 GABBY GARDNER APRN R V72.41 TEST NEGATIVE RESULT 02/15/2012 JENNY SHINE APRN S V72.41 TEST NEGATIVE RESULT 02/15/2012 JASS CESIA OLIVEIRA K V72.41 TEST NEGATIVE RESULT 02/15/2012 TEJAS MOTTA NIKKI A V72.41 TEST NEGATIVE RESULT 05/01/2012 CESIA REGAN DO K V25.09 CONTRACEPTIVE COUNSELING - GENERAL 05/01/2012 V25.09 CONTRACEPTIVE COUNSELING - GENERAL 05/01/2012 GABBY GARDNER APRN R V25.09 CONTRACEPTIVE COUNSELING - GENERAL 05/01/2012 GABBY GARDNER APRN R V25.09 CONTRACEPTIVE COUNSELING - GENERAL 05/01/2012 JENNY SHINE APRN S V25.09 CONTRACEPTIVE COUNSELING - GENERAL 05/01/2012 V25.09 CONTRACEPTIVE COUNSELING - GENERAL 05/01/2012 V25.09 CONTRACEPTIVE COUNSELING - GENERAL 05/01/2012 SHASHA GUTIERREZ APRN V25.09 CONTRACEPTIVE COUNSELING - GENERAL 05/01/2012 CESIA REGAN DO K V25.09 CONTRACEPTIVE COUNSELING - GENERAL 05/01/2012 GABBY GARDNER APRN R V25.09 CONTRACEPTIVE COUNSELING - GENERAL 05/01/2012 FÁTIMA CROWN PRESSER, JENNY S V25.09 CONTRACEPTIVE COUNSELING - GENERAL 05/01/2012 REGAN DO, CESIA K V25.09 CONTRACEPTIVE COUNSELING - GENERAL 05/01/2012 NIKKI LAZARO APRN A V25.09 CONTRACEPTIVE COUNSELING - GENERAL 06/09/2012 CHELSEA GARDNER APRNIA R 692.9 ECZEMATOID DERMATITIS 06/09/2012 CHELSEA GARDNER APRNIA R 786.2 cough 06/09/2012 CHELSEA GARDNER APRNIA R 692.9 ECZEMATOID DERMATITIS 06/09/2012 GABBY GARDNER APRN R 786.2 cough 06/09/2012 PÉREZ SHINE APRNA S 692.9 ECZEMATOID DERMATITIS 06/09/2012 PÉREZ SHINE APRNA S 786.2 cough 06/09/2012 692.9 ECZEMATOID DERMATITIS 06/09/2012 786.2 cough 06/09/2012 692.9 ECZEMATOID DERMATITIS 06/09/2012 786.2 COUGH 06/09/2012 SHASHA GUTIERREZ APRN 692.9 ECZEMATOID DERMATITIS 06/09/2012 SHASHA GUTIERREZ APRN 786.2 COUGH 06/09/2012 REGAN DO, CESIA K 692.9 ECZEMATOID DERMATITIS 06/09/2012 REGAN DO, CESIA K 786.2 COUGH 06/09/2012 CHELSEA GARDNER APRNIA R 692.9 ECZEMATOID DERMATITIS 06/09/2012 ANITHA GARDNER APRNRICIA R 786.2 COUGH 06/09/2012 IESHA SHINE APRNNDA S 692.9 ECZEMATOID DERMATITIS 06/09/2012 PÉREZ SHINE APRNA S 786.2 COUGH 06/09/2012 REGAN DO, CESIA K 692.9 ECZEMATOID DERMATITIS 06/09/2012 REGAN DO, CESIA K 786.2 COUGH 06/09/2012 NIKKI LAZARO APRN A 692.9 ECZEMATOID DERMATITIS 06/09/2012 NIKKI LAZARO APRN A 786.2 COUGH 06/25/2012 GABBY GARDNER APRN R 682.6 SKIN ABSCESS OF THE RIGHT THIGH 06/25/2012 PÉREZ SHINE APRNA S 682.6 SKIN ABSCESS OF THE RIGHT THIGH 06/25/2012 682.6 SKIN ABSCESS OF THE RIGHT THIGH 06/25/2012 682.6 SKIN ABSCESS OF THE RIGHT THIGH 06/25/2012 SHASHA GUTIERREZ APRN 682.6 SKIN ABSCESS OF THE RIGHT THIGH 06/25/2012 CESIA REGAN DO K 682.6 SKIN ABSCESS OF THE RIGHT THIGH 06/25/2012 GABBY GARDNER APRN R 682.6 SKIN ABSCESS OF THE RIGHT THIGH 06/25/2012 PÉREZ SHINE APRNA S 682.6 SKIN ABSCESS OF THE RIGHT THIGH 06/25/2012 DELILAH REGAN DOA K 682.6 SKIN ABSCESS OF THE RIGHT THIGH 06/25/2012 NIKKI LAZARO APRN A 682.6 SKIN ABSCESS OF THE RIGHT THIGH 07/17/2012 JENNY SHINE APRN S 314.00 ADD 07/17/2012 314.00 ADD 07/17/2012 314.00 ADD 07/17/2012 SHASHA GUTIERREZ APRN 314.00 ADD 07/17/2012 CESIA REGAN DO K 314.00 ADD 07/17/2012 GABBY GARDNER APRN R 314.00 ADD 07/17/2012 JENNY SHINE APRN S 314.00 ADD 07/17/2012 REGAN DELILAH OLIVEIRAA K 314.00 ADD 07/17/2012 NIKKI LAZARO APRN A 314.00 ADD 08/22/2012 463 TONSILLITIS ACUTE 08/22/2012 463 TONSILLITIS ACUTE 08/22/2012 SHASHA GUTIERREZ APRN 463 TONSILLITIS ACUTE 08/22/2012 DELILAH REGAN DOA K 463 TONSILLITIS ACUTE 08/22/2012 GABBY GARDNER APRN 463 TONSILLITIS ACUTE 08/22/2012 JENNY SHINE APRN S 463 TONSILLITIS ACUTE 08/22/2012 REGAN DO CESIA K 463 TONSILLITIS ACUTE 08/22/2012 NIKKI LAZARO APRN A 463 TONSILLITIS ACUTE 03/09/2013 SHASHA GUTIERREZ APRN 535.50 GASTRITIS UNSPEC 03/09/2013 CESIA REGAN DO K 535.50 GASTRITIS UNSPEC 03/09/2013 GABBY GARDNER APRN 535.50 GASTRITIS UNSPEC 03/09/2013 JENNY SHINE APRN S 535.50 GASTRITIS UNSPEC 03/09/2013 CESIA REGAN DO K 535.50 GASTRITIS UNSPEC 03/09/2013 NIKKI LAZARO APRN 535.50 GASTRITIS UNSPEC 03/15/2013 STEFANO NUR, ANA M Andrade Ot 575.10 CHOLECYSTITIS, NOS 03/15/2013 ANA M AGARWAL MD Ot 789.01 ABDOMINAL PAIN, RIGHT UPPER QUADRANT 04/16/2013 MARIA ANTONIA NUR, STEVEN S Ot 574.00 CHOLELITH W AC CHOLECYST 08/26/2013 GABBY GARDNER APRN R 112.3 CANDIDIASIS OF SKIN AND NAILS 08/26/2013 CHELSEA GARDNER APRNIA R 692.9 CONTACT DERMATITIS AND OTHER ECZEMA UNSPECIFIED CAUSE 08/26/2013 JENNY SHINE APRN S 112.3 CANDIDIASIS OF SKIN AND NAILS 08/26/2013 JENNY SHINE APRN S 692.9 CONTACT DERMATITIS AND OTHER ECZEMA UNSPECIFIED CAUSE 08/26/2013 CESIA REGAN DO K 112.3 CANDIDIASIS OF SKIN AND NAILS 08/26/2013 CESIA REGAN DO K 692.9 CONTACT DERMATITIS AND OTHER ECZEMA UNSPECIFIED CAUSE 08/26/2013 NIKKI LAZARO APRN A 112.3 CANDIDIASIS OF SKIN AND NAILS 08/26/2013 NIKKI LAZARO APRN A 692.9 CONTACT DERMATITIS AND OTHER ECZEMA UNSPECIFIED CAUSE 04/29/2014 CESIA REGAN DO V72.42 TEST POSITIVE RESULT 04/29/2014 NIKKI LAZARO APRN V72.42 TEST POSITIVE RESULT 05/17/2014 NIKKI LAZARO APRN V04.81 FLU SHOT 05/17/2014 NIKKI LAZARO APRN V22.0 , NORMAL FIRST 05/19/2014 Ot 789.03 05/19/2014 Ot 785.6 05/19/2014 Ot 736.81 05/20/2014 Ot 789.03 05/20/2014 Ot 785.6 05/20/2014 Ot 736.81 05/26/2014 NIKKI LAZARO APRN Ot V22.0 06/02/2014 Ot 623.8 06/02/2014 Ot 634.91 07/06/2014 NIKKI LAZARO APRN Ot V22.0 07/06/2014 NIKKI LAZARO APRN Ot V22.0 07/06/2014 NIKKI LAZARO CROWN PRESSER Ot V22.0 07/06/2014 NIKKI LAZARO CROWN PRESSER Ot V22.0 09/07/2014 NIKIK LAZARO CROWN PRESSER Ot V22.0 12/15/2014 NIKKI LAZARO CROWN PRESSER Ot V22.0 12/15/2014 JOHN NUR, RALEIGH Shukri Ot 655.73 DECR MOVEMNT ANTEPARTUM CONDITION 12/15/2014 Ot 736.81 03/21/2015 Ot 736.81 03/21/2015 FENECH DO, LESLY S Ot M79.89 OTHER SPECIFIED SOFT TISSUE DISORDERS 03/21/2015 FENECH DO, LESLY S Ot Z3A.33 33 WEEKS GESTATION OF 04/22/2015 ERNIE NUR, NOEL Rivers Ot B37.9 CANDIDIASIS, UNSPECIFIED 04/22/2015 NOEL KLEIN MD Ot G89.18 OTHER ACUTE POSTPROCEDURAL PAIN 04/22/2015 NOEL KLEIN MD Ot L08.9 LOCAL INFECTION OF THE SKIN AND SUBCUTAN 09/25/2015 Ot 736.81 UNEQUAL LEG LENGTH 09/26/2015 ABEL NUR, LUIS T Ot F17.210 NICOTINE DEPENDENCE, CIGARETTES, UNCOMPL 09/26/2015 ABEL NUR, LUIS T Ot J01.10 ACUTE FRONTAL SINUSITIS, UNSPECIFIED 09/26/2015 LUIS ROMAN MD T Ot R51 HEADACHE 09/27/2015 LUIS ROMAN MD T Ot F17.210 NICOTINE DEPENDENCE, CIGARETTES, UNCOMPL 09/27/2015 ABEL NUR, LUIS T Ot J01.10 ACUTE FRONTAL SINUSITIS, UNSPECIFIED 09/27/2015 LUIS ROMAN MD T Ot R51 HEADACHE 10/10/2015 ARIADNE LOYOLA Ot G43.909 MIGRAINE, UNSP, NOT INTRACTABLE, WITHOUT 10/10/2015 ARIADNE LOYOLA Ot Z53.21 PROC/TRTMT NOT CRD OUT D/T PT LV BEF SEE 10/11/2015 ARIADNE LOYOLA Ot G43.909 MIGRAINE, UNSP, NOT INTRACTABLE, WITHOUT 10/11/2015 ARIADNE LOYOLA Ot Z53.21 PROC/TRTMT NOT CRD OUT D/T PT LV BEF SEE 01/22/2016 RAJANI DUARTE ARIADNE L Ot L50.9 URTICARIA, UNSPECIFIED 01/22/2016 RAJANI DUARTE ARIADNE L Ot O99.89 OTH DISEASES AND CONDITIONS COMPL PREG/ C 01/22/2016 RAJANI DUARTE ARIADNE L Ot R21 RASH AND OTHER NONSPECIFIC SKIN ERUPTION 01/22/2016 RAJANI DUARTE ARIADNE L Ot S30.861A INSECT BITE (NONVENOMOUS) OF ABDOMINAL W 01/22/2016 RAJANI DUARTE ARIADNE L Ot S40.862A INSECT BITE (NONVENOMOUS) OF LEFT UPPER 01/22/2016 RAJANI DUARTE ARIADNE L Ot W57.XXXA BIT/STUNG BY NONVENOM INSECT OTH NONVE 01/22/2016 ARIADNE LOYOLA Ot Y99.8 OTHER EXTERNAL CAUSE STATUS 01/22/2016 RAJANI DUARTE ARIADNE L Ot Z3A.01 LESS THAN 8 WEEKS GESTATION OF 01/23/2016 RAJANI DUARTE ARIADNE L Ot L50.9 URTICARIA, UNSPECIFIED 01/23/2016 RAJANI DUARTE ARIADNE L Ot O99.89 OTH DISEASES AND CONDITIONS COMPL PREG/ C 01/23/2016 RAJANI DUARTE ARIADNE L Ot R21 RASH AND OTHER NONSPECIFIC SKIN ERUPTION 01/23/2016 RAJANI DUARTE ARIADNE L Ot S30.861A INSECT BITE (NONVENOMOUS) OF ABDOMINAL W 01/23/2016 RAJANI DUARTE ARIADNE L Ot S40.862A INSECT BITE (NONVENOMOUS) OF LEFT UPPER 01/23/2016 RAJANI DUARTE ARIADNE L Ot W57.XXXA BIT/STUNG BY NONVENOM INSECT OTH NONVE 01/23/2016 ARIADNE LOYOLA Ot Y99.8 OTHER EXTERNAL CAUSE STATUS 01/23/2016 ARIADNE LOYOLA Ot Z3A.01 LESS THAN 8 WEEKS GESTATION OF Procedures Code Description [place] [address] URINE TEST (IN-HOUSE) 02/15/2012 06002 URINE TEST (IN-HOUSE) 05/01/2012 02386 GC/CHLAM URINE (STATE) 05/02/2012 95278 CULTURE WOUND (AEROBIC) 06/25/2012 34083 UA LONG DIP 03/09 50639 H PYLORI (IN-HOUSE) 03/09/2013 08917 TEST, URINE (IN-HOUSE) 01/21/2014 82911 TEST, URINE (IN-HOUSE) 04/29/2014 42114 US OB - EARLY <14 WEEKS 05/17/2014 68608 UA OB DIP 2014 Results Encounters ACCT No. Visit Date/Time Discharge Status Pt. Type Provider Facility Loc./Unit Complaint [id number] 05/17/2014 10:25:00 05/17/2014 23: 59:59 CLS Outpatient TEJAS KALIATAMMIENIKKI A [id number] 04/29/2014 10:58:00 04/29/2014 23: 59:59 CLS Outpatient CESIA REGAN DO [id number] 01/21/2014 11:00:00 01/21/2014 23: 59:59 CLS Outpatient JENNY SHINE APRN [id number] 08/26/2013 12:42:00 08/26/2013 23: 59:59 CLS Outpatient GABBY GARDNER APRN [id number] 03/09/2013 10:02:00 03/09/2013 23: 59:59 CLS Outpatient CESIA REGAN DO [id number] 03/09/2013 10:02:00 03/09/2013 23: 59:59 CLS Outpatient SHASHA GUTIERREZ APRN [id number] 07/17/2012 17:54:00 07/17/2012 23: 59:59 CLS Outpatient JENNY SHINE APRN [id number] 06/25/2012 13:46:00 06/25/2012 23: 59:59 CLS Outpatient GABBY GARDNER APRN [id number] 06/09/2012 13:25:00 06/09/2012 23: 59:59 CLS Outpatient GABBY GARDNER APRN [id number] 05/01/2012 15:41:00 05/01/2012 23: 59:59 CLS Outpatient CESIA REGAN DO [id number] 05/01/2012 15:41:00 05/01/2012 23: 59:59 CLS Outpatient [id number] 02/15/2012 12:47:00 02/15/2012 23:59 :59 CLS Outpatient [id number] 09/11/2012 11:29:00 Document Registration [id number] 08/22/2012 13:43:00 Document Registration
[2016-10-24] MEDS ORDERED: NS IV 1000 ML 1,000 ML IV ONE (17:24)
[2016-10-24] MEDS ORDERED: ACETAMINOPHEN 500 MG TAB (TYLENOL) PO STA (17:24)
[2016-10-24 17:30] LABS: BILIRUBIN,URINE NEGATIVE (NEGATIVE); KETONES,URINE NEGATIVE (NEGATIVE); LEUKOCYTE ESTERASE ,URINE 1+ (NEGATIVE); NITRITE,URINE NEGATIVE (NEGATIVE); PH,URINE 6 (5-9); PROTEIN,URINE 1+ (NEGATIVE); UROBILINOGEN,URINE NORMAL (NORMAL)
--- NOTE | 2016-10-24 17:31 | ED Headache ---
General Chief Complaint: Head/Cervical Problems Stated Complaint: 15 WKS /HEADACHES,NOSE BLEED W BLOOD CLOTS Nursing Triage Note: PT CO OF HEAD ACHE INTERMITTENTLY FOR 2 WEEKS, DID NOT TELL OBGYN CO HEAD ACHE, PT STATES HAD NOSE BLEED TODAY. PT IS 15 WEEKS Nursing Sepsis Screen: No Definite Risk History of Present Illness Time seen by provider: 17:15 Initial Comments Patient reports for approximately 2 weeks she has been having headaches intermittently. She has been using Tylenol for the headaches and they resolve at times. She denies taking any Tylenol today. The headaches vary in location, sometimes frontal, sometimes more sinus pressure and sometimes occipital. Today she had a headache along with epistaxis, with one clot she noted in the tissue. No active epistaxis presently. She is 15 weeks gestation, had OB evaluation on , did not report headaches at that time and exam was otherwise normal. Over the last week, 3-5 daily episodes of diarrhea. She denies any abdominal cramping or vaginal spotting. She drinks proximally 3 bottles of water a day. Timing/Duration: 1 week Severity/Quality: mild Location: frontal, occipital Prior Headaches/Recent Trauma: no recent headache/trauma Modifying Factors: improves with rest Associated Symptoms: No confusion, fatigue, facial pain, No fever/chills, No flushing, No loss of consciousness, No nausea/vomiting, nasal congestion, No nasal drainage, No numbness in legs/feet, No rash, No seizures, No sinus infection, No stiff neck, No vision changes, No weakness Allergies and Home Medications Allergies Coded Allergies: No Known Drug Allergies (Unverified , 01/22/16) Home Medications Pnv95/Ferrous Fumarate/FA 1 Each Tablet, 1 EACH PO DAILY, #0 Prescribed by: KATT GARDNER on 12/15/14 9164 Constitutional: no symptoms reported, see HPI Eyes: No Symptoms Reported, See HPI, Denies Decreased Acuity, Denies Vision Changes Ears, Nose, Mouth, Throat: no symptoms reported, see HPI Respiratory: no symptoms reported, see HPI Cardiovascular: no symptoms reported, see HPI Gastrointestinal: no symptoms reported, see HPI Genitourinary: no symptoms reported, see HPI Expected Date of Delivery: Apr 19, 2017 Musculoskeletal: no symptoms reported, see HPI Psychiatric/Neurological: See HPI, Headache All Other Systems Reviewed Negative Unless Noted: Yes Past Fivbhzn-Zzdmzg-Ngqyif Hx Patient Social History Alcohol Use: Denies Use Recreational Drug Use: No Smoking Status: Former Smoker Recent Foreign Travel: No Contact w/Someone Who Travel: No Recent Infectious Disease Expo: No Recent Hopitalizations: No Immunizations Up To Date Tetanus Booster (TDap): Less than 5yrs Date of Influenza Vaccine: Apr 15, 2014 Seasonal Allergies Seasonal Allergies: No Surgeries HX Surgeries: Yes Surgeries: Section, Gallbladder Respiratory Hx Respiratory Disorders: No Cardiovascular Hx Cardiac Disorders: No Neurological Hx Neurological Disorders: No 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 System : Yes (15 WEEKS) Hx : 4 Hx Para: 1 Hx Total # of Abortions (Spona: 2 Hx 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 Disorders: No Sexually Transmitted Disease: No HIV/AIDS: No Genitourinary Hx Genitourinary Disorders: No Gastrointestinal Hx Gastrointestinal Disorders: No Musculoskeletal Hx Musculoskeletal Disorders: No Endocrine Hx Endocrine Disorders: No HEENT HX ENT Disorders: No Cancer Hx Cancer: No Psychosocial Hx Psychiatric Problems: Yes Behavioral Health Disorders: ADD/ADHD, Depression Integumentary HX Skin/Integumentary Disorder: No Blood Transfusions Hx Blood Disorders: No Reviewed Nursing Assessment Reviewed/Agree w Nursing PMH: Yes Family Medical History Significant Family History: No Pertinent Family Hx Family Medial History: Family history: Gastrointestinal disease PATERNAL GRANDMOTHER, Onset:Unknown Family history: Hypertension 03 FATHER, Onset:Unknown Physical Exam Vital Signs Vital Sign - Last 12Hours 10/24/16 16:51 Temp 97.4 Pulse 101 Resp 18 B/P (MAP) 125/74 Pulse Ox 99 Capillary Refill : Less Than 3 Seconds General Appearance: WD/WN, no apparent distress HEENT: PERRL/EOMI, normal ENT inspection, TMs normal, pharynx normal, No photophobia, other (nasal turbinates injected, no active bleeding. No frontal or maxillary sinus tenderness) Neck: non-tender, full range of motion, normal inspection, No lymphadenopathy ( R), No lymphadenopathy (L) Cardiovascular: normal peripheral pulses, regular rate, rhythm, no edema, no murmur Respiratory: chest non-tender, lungs clear, normal breath sounds Gastrointestinal: normal bowel sounds, non tender, soft, No guarding, No rebound Back: normal inspection, no CVA tenderness, no vertebral tenderness Extremities: normal range of motion, non-tender, normal inspection, no pedal edema, normal capillary refill Psychiatric: alert, oriented x 3 Crainal Nerves: normal hearing, normal speech, PERRL Coordination/Gait: normal finger to nose, normal gait, negative Romberg's sign Motor/Sensory: no motor deficit, no sensory deficit, no pronator drift Skin: normal color, warm/dry Lymphatic: no adenopathy Progress/Results/Core Measures Results/Orders Lab Results Laboratory Tests Test 10/24/16 17:10 10/24/16 17:55 Range/Units Urine Color YELLOW Urine Clarity CLEAR Urine pH 6 5-9 Urine Specific [place] 1.025 H 1.016-1.022 Urine Protein 1+ H NEGATIVE Urine Glucose (UA) NEGATIVE NEGATIVE Urine Ketones NEGATIVE NEGATIVE Urine Nitrite NEGATIVE NEGATIVE Urine Bilirubin NEGATIVE NEGATIVE Urine Urobilinogen NORMAL NORMAL MG/DL Urine Leukocyte Esterase 1+ H NEGATIVE Urine RBC (Auto) NEGATIVE NEGATIVE Urine RBC NONE /HPF Urine WBC 0-2 /HPF Urine Squamous Epithelial Cells 2-5 /HPF Urine Crystals PRESENT H /LPF Urine Calcium Oxalate Crystals MODERATE H /LPF Urine Bacteria MODERATE H /HPF Urine Casts NONE /LPF Urine Mucus LARGE H /LPF Urine Other FEW SPERM H /HPF Urine Culture Indicated NO White Blood Count 13.1 H 4.3-11.0 10^3/uL Red Blood Count 3.99 L 4.35-5.85 10^6/uL Hemoglobin 12.0 11.5-16.0 G/DL Hematocrit 35 35-52 % Mean Corpuscular Volume 87 80-99 FL Mean Corpuscular Hemoglobin 30 25-34 PG Mean Corpuscular Hemoglobin Concent 35 32-36 G/DL Red Cell Distribution Width 12.6 10.0-14.5 % Platelet Count 219 130-400 10^3/uL Mean Platelet Volume 11.8 H 7.4-10.4 FL Neutrophils (%) (Auto) 70 42-75 % Lymphocytes (%) (Auto) 21 12-44 % Monocytes (%) (Auto) 7 0-12 % Eosinophils (%) (Auto) 1 0-10 % Basophils (%) (Auto) 0 0-10 % Neutrophils # (Auto) 9.2 H 1.8-7.8 X 10^3 Lymphocytes # (Auto) 2.8 1.0-4.0 X 10^3 Monocytes # (Auto) 1.0 0.0-1.0 X 10^3 Eosinophils # (Auto) 0.1 0.0-0.3 10^3/uL Basophils # (Auto) 0.0 0.0-0.1 10^3/uL Sodium Level 138 135-145 MMOL/L Potassium Level 3.6 3.6-5.0 MMOL/L Chloride Level 108 H 98-107 MMOL/L Carbon Dioxide Level 22 21-32 MMOL/L Anion Gap 8 5-14 MMOL/L Blood Urea Nitrogen 6 L 7-18 MG/DL Creatinine 0.58 L 0.60-1.30 MG/DL Estimat Glomerular Filtration Rate > 60 BUN/Creatinine Ratio 10 Glucose Level 82 70-105 MG/DL Calcium Level 9.2 8.5-10.1 MG/DL Total Bilirubin 0.2 0.1-1.0 MG/DL Aspartate Amino Transf (AST/SGOT) 13 5-34 U/L Alanine Aminotransferase (ALT/SGPT) 15 0-55 U/L Alkaline Phosphatase 22 L 40-136 U/L Total Protein 6.8 6.4-8.2 GM/DL Albumin 3.8 3.2-4.5 GM/DL My Orders Orders - MONIKA MORENO Cbc With Automated Diff (10/24/16 17:24) Comprehensive Metabolic Panel (10/24/16 17:24) Ua Culture If Indicated (10/24/16 17:24) Saline Lock/Iv-Start (10/24/16 17:24) Ns Iv 1000 Ml (Sodium Chloride 0.9%) (10/24/16 17:24) Acetaminophen Tablet (Tylenol Tablet) (10/24/16 17:24) Medications Given in ED Current Medications Medications Dose Ordered Sig/Ernestine Route Start Time Stop Time Status Last Admin Dose Admin Sodium Chloride 1,000 ml @ 0 mls/hr Q0M ONCE IV 10/24/16 17:24 10/24/16 17:26 DC 10/24/16 17:50 1,000 MLS/HR Vital Signs/I&O Vital Sign - Last 12Hours 10/24/16 10/24/16 16:51 19:15 Temp 97.4 Pulse 101 93 Resp 18 18 B/P (MAP) 125/74 Pulse Ox 99 97 Blood Pressure Mean: 91 Progress Note : Time: 17:15 Progress Note Initial evaluation completed, recommended Tylenol 1,000 mg by mouth, 1 L normal saline IV, CBC, UA, and CMP. Discussed the importance of obtaining increased water intake, due to the heat and . Encouraged follow-up with Dr. Miner prior to November 16. 1800 patient reports headache is improving, after all essentially normal. Continue to monitor as IV infuses. 1830 patient reports headache is gone. Best at length the importance of obtaining enough oral fluids with and heat in the summer. Patient education about epistaxis and . All questions answered and discharge plans reviewed. Departure Impression Impression: Primary Impression: Headache Qualified Codes: G44.52 - New daily persistent headache (ndph) Additional Impression: Diarrhea in adult patient Disposition: HOME, SELF-CARE Condition: Improved Departure-Patient Inst. Decision time for Depature: 18:30 Referrals: NO,LOCAL PHYSICIAN (PCP) Primary Care Physician DINORA WRAY DO (Family) Primary Care Physician Patient Instructions: Diarrhea in Adolescents and Adults, Headache, Adult (DC) Add. Discharge Instructions: Increase oral intake of water, 6-8 bottles per day. Follow-up with Dr. Miner in 3-7 days, sooner if continued symptoms. Eat 1 cup of activity yogurt daily. Start taking an OTC probiotic. Tylenol 1,000 mg every 6 hours for headache. Return to emergency department for fever greater than 100, headache not resolved with Tylenol, persistent diarrhea, visual changes, dizziness, fainting , persistent nose bleeds, or new problems. Use saline mist to nostrils every 1-2 hours. Irrigate sinuses with Artie Med once daily. Use cool mist vaporizer in room at night. All discharge instructions reviewed with patient and/or family. Voiced understanding. MONIKA MORENO Oct 24, 2016 17:31
[2016-10-24 17:46] LABS: CALCIUM OXALATE CRYSTALS,UR MODERATE /LPF; WBC,URINE 0-2 /HPF
[2016-10-24 18:07] LABS: BASOPHILS % (AUTO) 0 % (0-10); EOSINOPHILS # (AUTO) 0.1 10^3/uL (0.0-0.3); EOSINOPHILS % (AUTO) 1 % (0-10); LYMPHOCYTES # (AUTO) 2.8 X 10^3 (1.0-4.0); LYMPHOCYTES % (AUTO) 21 % (12-44); MEAN CORPUSCULAR HEMOGLOBIN 30 PG (25-34); MEAN CORPUSCULAR HGB CONC 35 G/DL (32-36); MEAN CORPUSCULAR VOLUME 87 FL (80-99); MEAN PLATELET VOLUME 11.8 FL (7.4-10.4); MONOCYTES % (AUTO) 7 % (0-12); NEUTROPHILS # (AUTO) 9.2 X 10^3 (1.8-7.8); NEUTROPHILS % (AUTO) 70 % (42-75); PLATELET COUNT 219 10^3/uL (130-400); RED BLOOD COUNT 3.99 10^6/uL (4.35-5.85); RED CELL DISTRIBUTION WIDTH 12.6 % (10.0-14.5); WHITE BLOOD COUNT 13.1 10^3/uL (4.3-11.0)
[2016-10-24 18:32] LABS: ALANINE AMINOTRANSFERASE 15 U/L (0-55); ALBUMIN 3.8 GM/DL (3.2-4.5); ANION GAP 8 MMOL/L (5-14); ASPARTATE AMINO TRANSFERASE 13 U/L (5-34); BILIRUBIN,TOTAL 0.2 MG/DL (0.1-1.0); BLOOD UREA NITROGEN 6 MG/DL (7-18); BUN/CREATININE RATIO 10; CALCIUM 9.2 MG/DL (8.5-10.1); CARBON DIOXIDE 22 MMOL/L (21-32); CHLORIDE 108 MMOL/L (98-107); CREATININE SERUM 0.58 MG/DL (0.60-1.30); GFR ESTIMATED > 60; GLUCOSE 82 MG/DL (70-105); POTASSIUM 3.6 MMOL/L (3.6-5.0); SODIUM 138 MMOL/L (135-145); TOTAL PROTEIN 6.8 GM/DL (6.4-8.2)
[2016-10-24 19:15] VITALS: BP 123/93
== END 2016-10-24 19:15 | disposition home or self-care (01) ==
LOC: EDUNIT# 16:37 → ER 16:41
DX: O26.892 Other specified pregnancy related conditions, second trimester (principal); R51 Headache; O99.89 Other specified diseases and conditions complicating pregnancy, childbirth and the puerperium; R19.7 Diarrhea, unspecified; O99.342 Other mental disorders complicating pregnancy, second trimester; F90.9 Attention-deficit hyperactivity disorder, unspecified type; F32.9 Major depressive disorder, single episode, unspecified; F98.8 Other specified behavioral and emotional disorders with onset usually occurring in childhood and adolescence; Z3A.15 15 weeks gestation of pregnancy; Z87.891 Personal history of nicotine dependence; Z87.59 Personal history of other complications of pregnancy, childbirth and the puerperium
CPT/HCPCS: 36415; 80053; 81000; 85025; 96360

== ENCOUNTER 2018-03-14 11:56 | Emergency (ER) | payer MEDICAID ==
[~2018-03-14] VITALS: Ht 162.6 cm; Wt 104.3 kg
[~2018-03-14 11:56] MED LIST changes: -HYDR-3812 PO
--- OUTSIDE RECORDS SUMMARY | 2018-03-14 12:02 | XMS REPORT ---
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 Name Role Phone YAMEL BEE Unavailable PROBLEMS Type Condition ICD9-CM Code CVM67-PB Code Onset Dates Condition Status SNOMED Code Problem Acute tonsillitis 463 Active 27900815 Problem Attention deficit disorder of childhood without mention of hyperactivity 314.00 Active 90692297 Problem Acute sinusitis, unspecified 461.9 Active 81968651 Problem Generalized anxiety disorder F41.1 Active 13259285 Problem Other general counseling and advice for contraceptive management V25.09 Active 785183059 Problem Intermittent explosive disorder F63.81 Active 81023985 Problem Surveillance of other previously prescribed contraceptive method V25.49 Active 513592042 Problem Candidiasis of skin and nails 112.3 Active 585366894 Problem Dysthymic disorder 300.4 Active 42938740 Problem Panic disorder F41.0 Active 609614205 Problem Anxiety state, unspecified F41.1 Active 098603515 Problem Need for prophylactic vaccination and inoculation, Influenza V04.81 Active 363925185 Problem Supervision of normal first V22.0 Active 870485886 Problem examination or test, positive result V72.42 Active 678645628 Problem examination or test, negative result V72.41 Active 218063094 Problem Dizziness and giddiness 780.4 Active 554689769 Problem Contact dermatitis and other eczema, due to unspecified cause 692.9 Active 29421290 Problem Cough 786.2 Active 87317109 Problem Cellulitis and abscess of leg, except foot 682.6 Active 565126757 Problem Other malaise and fatigue 780.79 Active 661629340 Problem Unspecified gastritis and gastroduodenitis without mention of hemorrhage 535.50 Active 429657356 ALLERGIES No Information ENCOUNTERS Encounter Location Date Diagnosis [facility] [address] [facility] [id number] [address] 30 Oct, 2017 Generalized anxiety disorder F41.1 ; Panic disorder F41.0 and Intermittent explosive disorder F63.81 [facility] [id number] [place] [address] 62584- 8847 Jan, Anxiety state, unspecified F41.1 [facility] [id number] [place] [address] 76727- 4691 Jul, test negative Z32.02 [facility] [id number] [place] [address] 44723- 6309 Jan, [facility] [id number] [place] [address] 66731- 8294 Dec, test positive Z32.01 [facility] [id number] [place] [phone] -2970 Sep, Acute recurrent frontal sinusitis J01.11 [facility] [id number] [place] [address] 05285- 4657 August, , normal subsequent V22.1 [facility] [id number] [place] [address] 09119- 4719 August, [facility] [id number] [place] [address] 77066- 5244 Jul, [facility] [id number] [place] [address] 93804- 4328 Jul, [facility] [id number] [place] [address] 56789- 3640 Jun, [facility] [id number] [place] [address] 32332- 0758 Jun, [facility] [id number] [place] [address] 53719- 1140 May, [facility] [id number] [place] [address] 60043- 4275 May, [facility] [id number] [place] [address] 78409- 5862 May, 2014 [facility] [place] [facility] [address] [id number] [place] [address] 4921 May, 2014 [facility] [place] [facility] [address] [id number] [place] [address] 1331 May, 2014 [facility] [place] [facility] [address] [id number] [place] [address]- 4479 May, 2014 [facility] [place] [facility] [address] [id number] [place] [address] 1048 May, 2014 [facility] [place] [facility] [address] [id number] [place] [address] May, [facility] [place] [facility] [address] [id number] [place] [address] 1570 Apr, [facility] [place] [facility] [address] [facility] [id number] [place] [address] 1371 Apr, [facility] [place] [facility] [address] [id number] [place] [address] 7384 Jan, [facility] [place] [facility] [address] [id number] [place] [address] 8274 Jan, [facility] [place] [facility] [address] [facility] [id number] [place] [address]- 1706 August, [facility] [place] [facility] [address] [id number] [place] [address] 4252 August, [facility] [place] [facility] [address] [id number], [place] [address] 89[address] Jul, [facility] [place] [facility] [address] [id number] [place] [address] 1565 Jul, [facility] [place] [facility] [address] [id number] [place] [address] 9078 Feb, [facility] [place] [facility] [address] [id number] [place] [address] Feb, [facility] [place] [facility] [address] [id number] [place] [address] 5164 Jan, [facility] [address] [id number] [place] [address] 4834 Jan, [facility] [place] [facility] [address] [id number] [place] [address]- 7052 Nov, [facility] [place] [facility] [address] [id number] [place] [address] 7890 Oct, [facility] [place] [facility] [address] [id number] [place] [address]- 5468 Oct, [facility] [place] [facility] [address] [id number] [place] [address] 4475 Oct, [facility] [address] [id number] [place] [address] 4596 August, [facility] [address] [id number] [place] [address] 9256 August, [facility] [address] [id number] [place] [address]- 3328 August, [facility] [address] [id number] [place] [address]- 6877 August, [facility] [address] [id number] [place] [address]- 8671 Jul, [facility] [place] [facility] [address] [id number] [place] [address]- 4243 Jul, [facility] [place] [facility] [address] [id number] [place] [address]- 3693 Jul, [facility] [place] [facility] [address] [id number] [place] [address]- 5388 Jul, [facility] [place] [facility] [address] [id number] [place] [address]- 3762 Jun, [facility] [place] [facility] [address] [id number] [place] [address]- 9360 20 Jun, 2012 [facility] [address] [id number] [place] [address]- 9346 13 Jun, 2012 [facility] [place] [facility] [address] [id number] [place] [address]- 3042 Jun, [facility] [place] [facility] [address] [id number] [place] [address]- 6874 06 Jun, 2012 [facility] [place] [facility] [address] [id number] [place] [address]- 0686 25 May, 2012 [facility] [place] [facility] [address] [id number] [place] [address]- 2576 14 May, 2012 [facility] [place] [facility] [address] [id number] [place] [address]- 8784 May, [facility] [address] [id number] [place] [address]- 5406 24 Apr, 2012 [facility] [place] [facility] [address] [id number] [place] [address]- 4413 Apr, [facility] [address] [id number] [place] [address]- 9361 Apr, [facility] [place] [facility] [address] [id number] [place] [address]- 5207 Apr, [facility] [place] [facility] [address] [id number] [place] [address]- 6313 Feb, [facility] [place] [facility] [address] [id number] [place] [address] 2544 Feb, [facility] [place] [facility] [address] [id number] [place] [address]- 2486 28 Dec, 2011 [facility] [place] [facility] [address] [id number] [place] [address]- 9561 10 Dec, 2011 [facility] [place] [facility] [address] [id number] [place] [address] 2546 Nov, [facility] [place] [facility] [address] [id number] [place] [address]- 9007 28 Sep, 2011 [facility] [address] [id number] [place] [address]- 6509 Jul, [facility] [place] [facility] [address] [id number] [place] [address]- 0436 29 Jun, 2011 [facility] [address] [id number] [place] [address]- 1603 Apr, [facility] [address] [id number] [place] [address]- 8995 Apr, [facility] [address] [id number] [place] [address]- 9559 Apr, [facility] [address] [id number] [place] [address]- 8616 Apr, [facility] [address] [id number] [place] [address]- 8201 15 Mar, 2011 [facility] [address] [id number] [place] [address]- 9911 15 Mar, 2011 [facility] [address] [id number] [place] [address]- 0538 13 Dec, 2010 [facility] [address] [id number] [place] [address]- 8248 16 Jun, 2010 [facility] [address] [id number] [place] [address]- 7988 Feb, [facility] [address] [id number] [place] [address] 2543 Feb, [facility] [place] [facility] [address] [id number] [place] [address]- 6420 16 Feb, 2010 [facility] [place] [facility] [address] [id number] [place] [address]- 2546 Feb, [facility] [address] [id number] [place] [address]- 6217 Jan, [facility] [address] [address] 15 Jan, 2010 [facility] [address] [address] 4608 14 Dec, 2009 [facility] [address] [address] Nov, [facility] [address] [address] August, [facility] [address] [address]- 6953 Mar, [facility] [id number] [place] [address] 82006- 0853 Mar, [facility] [address] [address]- 5097 Feb, [facility] [address] [address]68 Feb, [facility] [address] [place] [address]- 1551 Feb, [facility] [address] [address] Feb, [facility] [address] [place] [address]- 6418 Feb, [facility] [address] [place] [address]- 3274 Jul, [facility] [address], [place] [address]- 9389 Jun, [facility] [address], [place] [address]- [address]797 Apr, IMMUNIZATIONS No Known Immunizations SOCIAL HISTORY Never Assessed REASON FOR VISIT BH intake, "I want to be less paranoid." PLAN OF CARE Activity Details Follow Up next available Reason:anxiety VITAL SIGNS MEDICATIONS No Known Medications RESULTS No Results PROCEDURES Procedure Date Ordered Result Body Site Psychotherapy, patient &/family, 45 minutes, established patient Feb 11, 2017 INSTRUCTIONS MEDICATIONS ADMINISTERED No Known Medications MEDICAL (GENERAL) HISTORY Type Description Date Medical History Seeing OB provider in [place] Medical History asthma Medical History depression Medical History attention deficit disorder Surgical History section 04/2015 Surgical History cholecystectomy Hospitalization History Childbirth only Hospitalization History [facility] around 2009 for Homicidal Ideation/Anger
--- OUTSIDE RECORDS SUMMARY | 2018-03-14 12:02 | XMS REPORT ---
Author Author TONO BRUNO Organization [facility] Address [address] [place] [address] Care Team Providers Care Adult Education Manager Name Role Phone DAMION, TONO Unavailable PROBLEMS Type Condition ICD9-CM Code HEQ75-HE Code Onset Dates Condition Status SNOMED Code Problem Acute tonsillitis 463 Active 30167881 Problem Attention deficit disorder of childhood without mention of hyperactivity 314.00 Active 40390613 Problem Acute sinusitis, unspecified 461.9 Active 75605337 Problem Generalized anxiety disorder F41.1 Active 82901325 Problem Other general counseling and advice for contraceptive management V25.09 Active 245939193 Problem Intermittent explosive disorder F63.81 Active 23625977 Problem Surveillance of other previously prescribed contraceptive method V25.49 Active 754984239 Problem Candidiasis of skin and nails 112.3 Active 471128225 Problem Dysthymic disorder 300.4 Active 72666697 Problem Panic disorder F41.0 Active 820628741 Problem Anxiety state, unspecified F41.1 Active 265509898 Problem Need for prophylactic vaccination and inoculation, Influenza V04.81 Active 727262223 Problem Supervision of normal first V22.0 Active 208673227 Problem examination or test, positive result V72.42 Active 983582456 Problem examination or test, negative result V72.41 Active 659401559 Problem Dizziness and giddiness 780.4 Active 222071711 Problem Contact dermatitis and other eczema, due to unspecified cause 692.9 Active 71166366 Problem Cough 786.2 Active 88321896 Problem Cellulitis and abscess of leg, except foot 682.6 Active 111774200 Problem Other malaise and fatigue 780.79 Active 725918303 Problem Unspecified gastritis and gastroduodenitis without mention of hemorrhage 535.50 Active 711435513 ALLERGIES No Known Allergies ENCOUNTERS Encounter Location Date Diagnosis [facility] [address] [facility] [id number] [address] Jan, Generalized anxiety disorder F41.1 ; Panic disorder F41.0 and Intermittent explosive disorder F63.81 [facility] [id number] [place] [address] Jan, Anxiety state, unspecified F41.1 [facility] [address] [place] [address]- [address] Jul, test negative Z32.02 [facility] [id number] [place] [address]48- [address]207 Jan, [facility] [id number] [place] [address]19- 1121 Dec, test positive Z32.01 [facility] [id number] [place] [address] Sep, Acute recurrent frontal sinusitis J01.11 [facility] [id number] [place] [address]562- [address] August, , normal subsequent V22.1 [facility] [id number] [place] [address]- 125[address] August, [facility] [id number] [place] [address]228- 6272 Jul, [facility] [address] [address] Jul, [facility] [id number] [place] [address] 15578- 8450 Jun, [facility] [address] [place] [address] 73640- 5857 Jun, [facility] [id number] [place] [address]406- 2212 May, [facility] [address] [place] [address] 3[address]- 7978 May, [facility] [id number] [place] [address], [place] [address] May, 2014 [facility] [place] [facility] [address] [id number] [place] [address] May, 2014 [facility] [place] [facility] [address] [id number] [place] [address] 9273 May, 2014 [facility] [place] [facility] [address] [id number] [place] [address] 30[address] May, 2014 [facility] [place] [facility] [address] [id number] [place] [address] 8124 May, 2014 [facility] [place] [facility] [address] [id number] [place] [address] 8180 May, 2014 [facility] [place] [facility] [address] [facility] [id number] [place] [address] 164[address] Apr, [facility] [place] [facility] [address] [facility] [id number] [place] [address]- 3872 Apr, [facility] [place] [facility] [address] [id number] [place] [address] 9659 Jan, [facility] [place] [facility] [address] [facility] [id number] [place] [address] Jan, [facility] [place] [facility] [address] [facility] [id number] [place] [address]68 August, [facility] [place] [facility] [address] [id number] [place] [address] 1545 August, [facility] [place] [facility] [address] [id number] [place] [address] 9309 Jul, [facility] [place] [facility] [address] [id number] [place] [address] 0149 Jul, [facility] [place] [facility] [address] [id number] [place] [address] 3156 Feb, [facility] [place] [facility] [address] [id number] [place] [address] 0379 Feb, [facility] [address] [id number] [place] [address]- 8946 Jan, [facility] [place] [facility] [address] [id number] [place] [address]- 8237 Jan, [facility] [place] [facility] [address] [id number] [place] [address] Nov, [facility] [place] [facility] [address] [id number] [place] [address] 8628 Oct, [facility] [place] [facility] [address] [id number] [place] [address] Oct, [facility] [place] [facility] [address] [id number] [place] [address]- 9521 Oct, [facility] [place] [facility] [address] [id number] [place] [address]- 8591 August, [facility] [place] [facility] [address] [id number] [place] [address]- 7562 August, [facility] [place] [facility] [address] [id number] [place] [address]- 2655 August, [facility] [place] [facility] [address] [id number] [place] [address]- 5728 August, [facility] [place] [facility] [address] [id number] [place] [address]- 9201 Jul, [facility] [place] [facility] [address] [id number] [address] Jul, [facility] [place] [facility] [address] [id number] [place] [address]- 9289 Jul, [facility] [place] [facility] [address] [id number] [place] [address]- 8823 Jul, [facility] [place] [facility] [address] [id number] [place] [address]- 7731 Jun, [facility] [place] [facility] [address] [id number] [address] 20 Jun, 2012 [facility] [address] [id number] [place] [address]- 5377 13 Jun, 2012 [facility] [place] [facility] [address] [id number] [place] [address]- 2906 Jun, [facility] [address] [id number] [place] [address]- 5750 06 Jun, 2012 [facility] [address] [id number] [place] [address]- 5514 25 May, 2012 [facility] [address] [id number] [place] [address]- 7743 14 May, 2012 [facility] [address] [id number] [place] [address]- 2516 May, [facility] [address] [id number] [place] [address]- 8151 24 Apr, 2012 [facility] [address] [id number] [place] [address]- 9031 Apr, [facility] [address] [id number] [place] [address]- 7248 Apr, [facility] [address] [id number] [place] [address]- 1581 Apr, [facility] [address] [id number] [place] [address]- 5256 Feb, [facility] [address] [id number] [place] [address]- 2541 Feb, [facility] [place] [facility] [address] [id number] [place] [address]- 9361 28 Dec, 2011 [facility] [place] [facility] [address] [id number] [place] [address]- 9786 Dec, [facility] [address] [id number] [place] [address]- 1946 Nov, [facility] [place] [facility] [address] [id number] [place] [address]- 7712 Sep, [facility] [place] [facility] [address] [id number] [place] [address]- 7082 Jul, [facility] [place] [facility] [address] [id number] [place] [address]- 7162 29 Jun, 2011 [facility] [place] [facility] [address] [id number] [place] [address]- 8572 Apr, [facility] [address] [id number] [place] [address]- 9353 Apr, [facility] [place] [facility] [address] [id number] [place] [address]- 0179 Apr, [facility] [address] [id number] [place] [address]- 0003 Apr, [facility] [address] [id number] [place] [address]- 2877 15 Mar, 2011 [facility] [place] [facility] [address] [id number] [place] [address]- 9346 15 Mar, 2011 [facility] [place] [facility] [address] [id number] [place] [address]- 3985 13 Dec, 2010 [facility] [place] [facility] [address] [id number] [place] [address]- 6070 16 Jun, 2010 [facility] [place] [facility] [address] [id number] [place] [address]- 5887 Feb, [facility] [place] [facility] [address] [id number] [place] [address]- 2623 16 Feb, 2010 [facility] [place] [facility] [address] [id number] [place] [address]- 5743 16 Feb, 2010 [facility] [place] [facility] [address] [id number] [place] [address]- 8970 Feb, [facility] [place] [facility] [address] [id number] [address]- [address] Jan, [facility] [address] 15 Jan, 2010 [facility] [address] [address]- [address] 14 Dec, 2009 [facility] [address] [address]- [address]99 Nov, [facility] [address] [facility] [id number], [place] [address]- 8467 August, [facility] [address] [address] Mar, [facility] [address] [place] [address] 158601- 5878 Mar, [facility] [address] [place] [address] 00521- 4235 Feb, [facility] [address], [place] [address]- 0943 Feb, [facility] [address] [address]- 3985 Feb, [facility] [address], [place] [address]- 5673 Feb, [facility] [address] [address]- 1307 Feb, [facility] [address], [place] [address]- 8804 Jul, [facility] [address] [address] Jun, [facility] [address] [address] Apr, IMMUNIZATIONS No Known Immunizations SOCIAL HISTORY Never Assessed REASON FOR VISIT BH intake--Kiara Lima MA PLAN OF CARE Activity Details Follow Up 3 Weeks Reason: f/u VITAL SIGNS Height 65 in 2017-02-11 Weight 276.3 lbs 2017-02-11 Heart Rate 88 bpm 2017-02-11 Respiratory Rate 20 2017-02-11 BMI 45.97 kg/m2 2017-02-11 Blood pressure systolic 132 mmHg 2017-02-11 Blood pressure diastolic 84 mmHg 2017-02-11 MEDICATIONS Medication Instructions Dosage Frequency Start Date End Date Duration Status Zoloft 50 mg Orally Once a day 1 tablet 24h Jan, 30 day(s) Active Folic Acid 1 MG Orally Once a day 3 tablet 24h Active Vitamin 27-0.8 MG Active Labetalol HCl 200 MG Orally Twice a day 1 tablet 12h Active RESULTS No Results PROCEDURES No Known procedures INSTRUCTIONS MEDICATIONS ADMINISTERED No Known Medications MEDICAL (GENERAL) HISTORY Type Description Date Medical History Seeing OB provider in [place] Medical History asthma Medical History depression Medical History attention deficit disorder Surgical History section 04/2015 Surgical History cholecystectomy Hospitalization History Childbirth only Hospitalization History [facility] around 2009 for Homicidal Ideation/Anger
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
[2018-03-14 14:15] VITALS: BP 133/92
[2018-03-14] MEDS ORDERED: ACETAMINOPHEN 500 MG TAB (TYLENOL) PO ONE (14:15)
--- NOTE | 2018-03-14 14:28 | Diagnostic Imaging Report ---
EXAMINATION: Lumbar spine. INDICATION: Back pain. TECHNIQUE: AP, lateral, and spot lateral views were obtained. FINDINGS: The lateral view shows the vertebral body heights and alignment to be within normal limits and similar to the prior exam of 11/23/2012. As noted on the prior exam, there is mild levoscoliosis of the lumbar spine. The intervertebral spaces are fairly well-maintained with the exception of L5-S1 which is slightly narrowed. There is no fracture or acute bony abnormality evident. There is no sign of a paraspinal mass. In the interval since the prior exam, the patient has undergone a cholecystectomy. Surgical clips are now evident in the right upper quadrant. There is mild symmetrical sclerosis of the sacroiliac joints. IMPRESSION: There is no evidence for an acute bony abnormality. Dictated by: Dictated on workstation # [id number]
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
== END 2018-03-14 14:23 | disposition home or self-care (01) ==
LOC: EDUNIT# 11:56 → ER 11:58
DX: S16.1XXA Strain of muscle, fascia and tendon at neck level, initial encounter (principal); M54.6 Pain in thoracic spine; F90.9 Attention-deficit hyperactivity disorder, unspecified type; F32.9 Major depressive disorder, single episode, unspecified; R40.2142 Coma scale, eyes open, spontaneous, at arrival to emergency department; R40.2252 Coma scale, best verbal response, oriented, at arrival to emergency department; R40.2362 Coma scale, best motor response, obeys commands, at arrival to emergency department; Z98.890 Other specified postprocedural states; Z87.19 Personal history of other diseases of the digestive system; Z82.49 Family history of ischemic heart disease and other diseases of the circulatory system; V43.52XA Car driver injured in collision with other type car in traffic accident, initial encounter; Y92.411 Interstate highway as the place of occurrence of the external cause
CPT/HCPCS: 70450; 72070; 72100; 72125

== ENCOUNTER 2019-11-23 05:43 | Outpatient (RCR) | payer MEDICAID ==
[~2019-11-23] VITALS: Ht 165.1 cm; Wt 113.6 kg
== END 2019-11-23 13:50 | disposition home or self-care (01) ==
LOC: PREOP 05:43
PROVIDERS: ATTEND Obstetrics & Gynecology
DX: Z01.818 Encounter for other preprocedural examination (principal)

== ENCOUNTER 2019-11-30 06:02 | Inpatient (IN) | payer MEDICAID ==
[2019-11-30] VITALS (12 sets, daily range): BP systolic 109–137; BP diastolic 47–83
[~2019-11-30] VITALS: Ht 162.6 cm; Wt 115.5 kg
[2019-11-30] MEDS ORDERED: LACTATED RINGERS 1,000 ML IV PRN (06:12)
[2019-11-30] MEDS ORDERED: metroNIDAZOLE 500MG/100ML IVPB 100 ML IV ONE (06:15)
[2019-11-30] MEDS ORDERED: ceFAZolin 2 GM IV Premixed 50 ML IV ONE (06:15)
[2019-11-30] MEDS ORDERED: ROCURONIUM 10 MG/ML 5 ML SYRINGE IV ONE ×2 (06:54→07:47)
[2019-11-30] MEDS ORDERED: SEVOFLURANE (ULTANE) 15 ML INHAL SOLN ONE ×4 (06:54→08:58)
[2019-11-30] MEDS ORDERED: ONDANSETRON 4 MG/2 ML (SDV) Z0FRAN ONE (06:54)
[2019-11-30] MEDS ORDERED: fentaNYL INJECTION 100 MCG/2 ML AMP ONE ×3 (06:54→09:12)
[2019-11-30] MEDS ORDERED: proPOfol 200 MG/20 ML (DIPRIVAN) VIAL IV ONE (06:54)
[2019-11-30] MEDS ORDERED: MIDAZOLAM 2 MG/2 ML (VERSED) VIAL ONE (06:55)
[2019-11-30 06:58] LABS: BASOPHILS % (AUTO) 0 % (0-10); EOSINOPHILS # (AUTO) 0.3 10^3/uL (0.0-0.3); EOSINOPHILS % (AUTO) 3 % (0-10); HEMATOCRIT 40 % (35-52); HEMOGLOBIN 13.7 G/DL (11.5-16.0); LYMPHOCYTES # (AUTO) 2.5 X 10^3 (1.0-4.0); LYMPHOCYTES % (AUTO) 28 % (12-44); MEAN CORPUSCULAR HEMOGLOBIN 31 PG (25-34); MEAN CORPUSCULAR HGB CONC 34 G/DL (32-36); MEAN CORPUSCULAR VOLUME 89 FL (80-99); MEAN PLATELET VOLUME 11.2 FL (7.4-10.4); MONOCYTES # (AUTO) 0.8 X 10^3 (0.0-1.0); MONOCYTES % (AUTO) 9 % (0-12); NEUTROPHILS # (AUTO) 5.3 X 10^3 (1.8-7.8); NEUTROPHILS % (AUTO) 59 % (42-75); PLATELET COUNT 236 10^3/uL (130-400); RED CELL DISTRIBUTION WIDTH 12.5 % (10.0-14.5); WHITE BLOOD COUNT 8.9 10^3/uL (4.3-11.0)
--- NOTE | 2019-11-30 07:12 | History & Physical-OB/GYN ---
History of Present Illness History of Present Illness Reason for visit/HPI Ms. Quezada presents for scheduled Total Abdominal Hysterectomy with Bilateral Salpingo-oophorectomy secondary to pelvic pain caused by Endometriosis Date of Admission Nov 30, 2019 at 06:02 Date Seen by a Provider: Nov 30, 2019 Time Seen by a Provider: 06:50 I consulted on this patient on 11/30/19 07:07 Attending Physician Manas Echevarria DO Admitting Physician Manas Echevarria DO Consult Allergies and Home Medications Allergies Coded Allergies: morphine (Verified Allergy, Unknown, ITCHING, 11/23/19) Home Medications No Active Prescriptions or Reported Meds Patient Home Medication List Home Medication List Reviewed: Yes Past Yqcnyaz-Hjjeuq-Hcyazu Hx Patient Social History Marrital Status: Number of Children: 1 Number of living children: 1 Alcohol Use: Occasionally Uses Recreational Drug Use: No Smoking Status: Current Everyday Smoker Type Used: Cigarettes Recent Foreign Travel: No Contact w/other who traveled: No Recent Hopitalizations: No Immunizations Up To Date Tetanus Booster (TDap): Less than 5yrs Date of Influenza Vaccine: Apr 15, 2014 Seasonal Allergies Seasonal Allergies: No Surgeries Yes (c/s x2) Section, Gallbladder, 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 Respiratory No Cardiovascular No Neurological No 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 System Hx 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 Disorders: No Sexually Transmitted Disease: No HIV/AIDS: No Genitourinary No Gastrointestinal No Musculoskeletal No Endocrine History of Endocrine Disorders: No HEENT History of HEENT Disorders: No Cancer No Psychosocial History of Psychiatric Problem: Yes Behavioral Health Disorders: ADD/ADHD, Anxiety, Depression Integumentary History of Skin or Integumenta: No Blood Transfusions History of Blood Disorders: No Family Medical History Significant Family History: No Pertinent Family Hx Family Hx: Family history: Gastrointestinal disease PATERNAL GRANDMOTHER, Onset:Unknown Family history: Hypertension 03 FATHER, Onset:Unknown Review of Systems Constitutional: see HPI Physical Exam Physical Exam Vital Signs Vital Signs Date Time Temp Pulse Resp B/P (MAP) Pulse Ox O2 Delivery O2 Flow Rate FiO2 11/30/19 06:15 36.0 78 16 136/83 (100) 99 Room Air Capillary Refill : Labs Laboratory Tests 11/30/19 06:45: White Blood Count 8.9, Red Blood Count 4.46, Hemoglobin 13.7, Hematocrit 40, Mean Corpuscular Volume 89, Mean Corpuscular Hemoglobin 31, Mean Corpuscular Hemoglobin Concent 34, Red Cell Distribution Width 12.5, Platelet Count 236, Mean Platelet Volume 11.2H, Neutrophils (%) (Auto) 59, Lymphocytes (%) (Auto) 28, Monocytes (%) (Auto) 9, Eosinophils (%) (Auto) 3, Basophils (%) (Auto) 0, Neutrophils # (Auto) 5.3, Lymphocytes # (Auto) 2.5, Monocytes # (Auto) 0.8, Eosinophils # (Auto) 0.3, Basophils # (Auto) 0.0 General Appearance: No Apparent Distress, WD/WN Respiratory: Chest Non Tender, Lungs Clear, Normal Breath Sounds Cardiovascular: Regular Rate, Rhythm, No Murmur Abdominal: normal bowel sounds, non tender, soft Labia: WNL Vagina: WNL Cervix: WNL Uterus: WNL Extremity: Normal Inspection, Non Tender, No Calf Tenderness Assessment/Plan Assessment and Plan Dysmenorrhea 2. Endometriosis 3. Pelvic Pain 4. Uterine Fibroid Admission Diagnosis Admission Status: Inpatient Order (span 2 midnights) Reason for Inpatient Admission: Scheduled surgery, Total Abdominal Hysterectomy with Bilateral Salpingo-oophorectomy MANAS ECHEVARRIA DO Nov 30, 2019 07:12
[2019-11-30] MEDS: LACTATED RINGERS 1,000 ML IV SCH ×3 (08:55→22:46)
[2019-11-30] MEDS ORDERED: NEOSTIGMINE 3 MG/3 ML VIAL ONE (08:58)
[2019-11-30] MEDS ORDERED: GLYCOPYRROLATE 0.2 MG/ML (ROBINUL) 2 ML VIAL ONE (08:58)
[2019-11-30] MEDS ORDERED: BENZOCAINE/MENTHOL (DERMOPLAST) 60 ML CAN TP PRN (09:00)
[2019-11-30] MEDS ORDERED: ONDANSETRON 4 MG/2 ML (SDV) Z0FRAN IVP PRN ×2 (09:00→09:15)
[2019-11-30] MEDS ORDERED: KETOROLAC 30 MG/ML VIAL IVP ONE (09:00)
[2019-11-30] MEDS ORDERED: KETOROLAC 30 MG/ML VIAL ONE (09:12)
[2019-11-30] MEDS ORDERED: MEPERIDINE (DEMEROL) INJ 50 MG/ML IVP ONE (09:15)
[2019-11-30] MEDS ORDERED: fentaNYL INJECTION 100 MCG/2 ML AMP IVP ONE (09:15)
[2019-11-30] MEDS ORDERED: PROMETHAZINE INJ 25 MG/ML (PHENERGAN) AMP IVP ONE (09:15)
--- NOTE | 2019-11-30 09:16 | Operative Report ---
Operative Report Date of Procedure/Surgery Nov 30, 2019 Surgeon (s) DINORA WRAY DO Machine Edge Bander (s): None Post-Operative Diagnosis Dysmenorrhea 2. Endometriosis 3. Pelvic Pain 4. Uterine Fibroid 5. Pelvic Adhesion 6. Right Ovarian Cyst (approximately 6 cm) Procedure Performed Total Abdominal Hysterectomy with Bilateral Salpinigo-oophorectomy Description of Procedure Anesthesia Type: General Estimated blood loss (mL): 100 ml Specimen(s) collected/removed Uterus, Fallopian Tubes, Ovaries, Previous Skin Scar Packing: None Description of the Procedure Ms. Quezada was taken to the Operating Room with IV fluids running. Once in the OR, General Anesthesia was administered without difficulty. In the supine position, she was prepped, draped and a Santana Catheter was inserted. An elliptical incision was made over her previous skin incision--the old incision was removed and sent to pathology. The incision was carried down to the underlying layer of the fascia. The fascia was nicked in the midline and extended laterally. The fascia was elevated and the underlying lying muscle was dissected off, bluntly and sharply. The rectus muscle was in the midline. The peritoneum was identified, entered sharply, then extended superiorly and inferiorly. Ms. Quezada was placed in Trendelenberg position. The bowel was packed cephalad with moist laparotomy sponges. An O'Martin-O'Castelan retractor was placed. The uterus was grasped with a fausto. The round ligament on both sides were clamped, transected and sutured with 0-Vicryl. The vesicouterine peritoneum was dissected off and the bladder was pushed caudally. At this point, the infundibulopelvic ligament bilaterally was doubly clamped, cut, and suture ligated with 0-Vicryl. At this point, the broad ligament along with the uterine blood vessels were serially clamped and cut--suture ligated with 0-Vicryl. Once I reached the uterosacral cardinal ligament, the uterus was amputated from the vaginal vault. The vaginal cuff was closed with 0-Vicryl attached to the uterosacral ligament. The vesicouterine peritoneum was reapproximated with 3-0 Vicryl. Hemostasis was noted throughout the pelvic cavity. All sponges and instruments were removed from the the pelvic cavity. The parietal peritoneum was approximated with 3-0 Vicryl. The fascia was closed with 0-Vicryl. The subcutaneous was approximated with 3-0 Plain Gut. The skin was closed with 4-0 Vicryl in a running subcuticular manner. A sterile pressure bandage was applied to the incision. Sponge, instrument, and needle counts were correct x 3. Ms. Quezada was taken to the Recovery Room in good and stable condition. Findings of the Procedure Enlarged right ovarian cyst (approximately 6 cm) and pelvic adhesions involving the omentum. Allergies and Home Medications Allergies Coded Allergies: morphine (Verified Allergy, Unknown, ITCHING, 11/23/19) Home Medications No Active Prescriptions or Reported Meds Patient Home Medication List Home Medication List Reviewed: Yes DINORA WRAY DO Nov 30, 2019 09:16
[2019-11-30] MEDS: fentaNYL INJECTION 100 MCG/2 ML AMP IVP PRN ×2 (09:43→10:43)
--- NOTE | 2019-11-30 10:10 | NUR ---
To room 305 per bed from [facility] following surgery this am. Report from PAR nurse. Patient oriented to room and bed. Call light in reach. at bedside. Patient complaining of pain, level 10. SCD placed. Abd dressing dry and intact, no drainage. Santana catheter in place. Draining yellow urine. O2 on at 2 liters by nasal cannula. IV site without swelling or redness. Placed on IV pump to run 125cc/hr. Water and ice given.
--- NOTE | 2019-11-30 10:35 | NUR ---
Dr. Echevarria notified of patient complaint of pain. OK to given additional dose of Fentanyl IV now. And to go ahead and give Ativan now, rather than wait till 1200 as scheduled.
--- NOTE | 2019-11-30 11:30 | NUR ---
Patient taking O2 off on own. When SpO2 checked with O2 off, running 92%. Replaced O2, and encouraged patient to leave on.
[2019-11-30] MEDS ORDERED: LORazepam INJ 2 MG/ML (ATIVAN) VIAL IVP ONE (12:00)
--- NOTE | 2019-11-30 12:15 | NUR ---
Report to Lupe Neil RN
[2019-11-30] MEDS: oxyCODONE/APAP 5/325MG (PERCOCET 5) TABLET PO SCH ×3 (14:08→22:47)
[2019-11-30] MEDS: IBUPROFEN 800 MG (MOTRIN) TAB PO SCH (18:30)
[2019-11-30] MEDS: METOCLOPRAMIDE 10 MG (REGLAN) TAB PO SCH ×2 (18:30→19:58)
[2019-11-30] MEDS ORDERED: ZOLPIDEM 5 MG (AMBIEN) TAB PO SCH (21:00)
[2019-11-30] MEDS: ONDANSETRON 4 MG (ZOFRAN) ORAL DISSOLVE TAB PO SCH (22:44)
[2019-12-01] VITALS: BP 120/80
[2019-12-01] MEDS: METOCLOPRAMIDE 10 MG (REGLAN) TAB PO SCH ×2 (01:34→09:02)
[2019-12-01] MEDS: IBUPROFEN 800 MG (MOTRIN) TAB PO SCH ×2 (01:34→09:03)
[2019-12-01] MEDS: ONDANSETRON 4 MG (ZOFRAN) ORAL DISSOLVE TAB PO SCH ×2 (01:35→09:20)
[2019-12-01] MEDS: oxyCODONE/APAP 5/325MG (PERCOCET 5) TABLET PO SCH ×2 (02:37→09:03)
[2019-12-01 04:15] VITALS: BP 122/76
[2019-12-01] MEDS ORDERED: BISACODYL 10 MG SUPP (DULCOLAX) PR NR (05:00)
[2019-12-01] MEDS ORDERED: MILK OF MAGNESIA 400 MG/5 ML 30 ML UDC PO NR (05:00)
[2019-12-01 05:50] LABS: BASOPHILS % (AUTO) 0 % (0-10); EOSINOPHILS % (AUTO) 0 % (0-10); HEMATOCRIT 35 % (35-52); HEMOGLOBIN 11.9 G/DL (11.5-16.0); LYMPHOCYTES # (AUTO) 2.3 X 10^3 (1.0-4.0); LYMPHOCYTES % (AUTO) 14 % (12-44); MEAN CORPUSCULAR HEMOGLOBIN 31 PG (25-34); MEAN CORPUSCULAR HGB CONC 34 G/DL (32-36); MEAN CORPUSCULAR VOLUME 90 FL (80-99); MEAN PLATELET VOLUME 11.6 FL (7.4-10.4); MONOCYTES # (AUTO) 1.2 X 10^3 (0.0-1.0); MONOCYTES % (AUTO) 7 % (0-12); NEUTROPHILS # (AUTO) 13.1 X 10^3 (1.8-7.8); NEUTROPHILS % (AUTO) 79 % (42-75); PLATELET COUNT 238 10^3/uL (130-400); RED CELL DISTRIBUTION WIDTH 12.5 % (10.0-14.5); WHITE BLOOD COUNT 16.6 10^3/uL (4.3-11.0)
--- NOTE | 2019-12-01 07:45 | NUR ---
Dr. Echevarria here to see patient, new orders received.
[2019-12-01 07:50] VITALS: BP 122/66
--- NOTE | 2019-12-01 08:03 | Anesthesia-General Post-Op ---
General Patient Condition Mental Status/LOC: Same as Preop Cardiovascular: Satisfactory Nausea/Vomiting: Absent Respiratory: Satisfactory Pain: Controlled Complications: Absent Post Op Complications Complications None Follow Up Care/Instructions Patient Instructions None needed. Anesthesia/Patient Condition Patient Condition Patient is doing well, no complaints, stable vital signs, no apparent adverse anesthesia problems. No complications reported per nursing. CHRISTY LARIOS CRNA Dec 01, 2019 08:03
--- NOTE | 2019-12-01 08:03 | Discharge Summary ---
Diagnosis/Chief Complaint Date of Admission Nov 30, 2019 at 06:02 Date of Discharge December 01, 2019 Discharge Date: Dec 01, 2019 Discharge Time: 12:00 Admission Diagnosis Admission Diagnosis Dysmenorrhea 2. Endometriosis 3. Pelvic Pain 4 Uterine Fibroid Discharge Diagnosis Dysmenorrhea 2. Endometriosis 3. Pelvic Pain 4 Uterine Fibroid 5. Right Ova tahir Cyst 6. Adhesive Disease Reason Hospital Visit Ms. Qeuzada presents for scheduled Total Abdominal Hysterectomy with Bilateral Salpingo-oophorectomy secondary to pelvic pain caused by Endometriosis Discharge Summary Hospital Course Was the Problem List Reviewed?: Yes Hospital Course Ms. Quezada was admitted for scheduled surgery, Total Abdominal Hysterectomy with Bilateral Salpingo-oophorectomy. The surgery was performed without complications. Postoperatively, she was started on oral and IV pain medications along with other comfort measures. She did well. Postoperative Day #1, she was given medication to increase her bowel function, after a bowel movement her diet would be advance. She was found voiding, ambulating, controlling her pain with oral medications. Her vital signs remained stable. The remainder of her hospitalization was unremarkable. I will discharge her to home with instructions, prescriptions, and a follow up appointment. Labs Laboratory Tests 11/30/19 06:45: Mean Platelet Volume 11.2H 12/01/19 05:08: Mean Platelet Volume 11.6H, White Blood Count 16.6H, Red Blood Count 3.89L, Neutrophils (%) (Auto) 79H, Neutrophils # (Auto) 13.1H, Monocytes # (Auto) 1.2H Procedures None. Discharge Physical Examination Allergies: Coded Allergies: morphine (Verified Allergy, Unknown, ITCHING, 11/23/19) Vitals & I&Os Vital Signs Date Time Temp Pulse Resp B/P (MAP) Pulse Ox O2 Delivery O2 Flow Rate FiO2 12/01/19 07:50 36.2 71 18 122/66 (84) 96 Room Air 11/30/19 10:15 2.00 General Appearance: Alert, Oriented X3, Cooperative HEENT: Atraumatic Respiratory: Clear to Auscultation, Normal Air Movement Cardiovascular: Regular Rate, No Murmurs Abdominal: Normal Bowel Sounds, Soft Extremities: No Clubbing, No Cyanosis Skin: No Rashes Neuro: Normal Gait, Normal Speech Psych/Mental Status: Mental Status NL Discharge Home Medications Reviewed and agree with Discharge Medication list on patient's Discharge Instruction sheet Instructions to Patient/Family Please see electronic discharge instructions given to patient. Clinical Quality Measures DVT/VTE Risk/Contraindication: Risk Factor Score Per Nursin RFS Level Per Nursing on Admit: 1=Low/No VTE PPX DINORA WRAY DO Dec 01, 2019 08:03
[2019-12-01] MEDS ORDERED: DCS100C PO (08:05)
[2019-12-01] MEDS ORDERED: OXYC1TAB87 PO (08:05)
[2019-12-01] MEDS ORDERED: IBUP-1780 PO (08:05)
[2019-12-01] MEDS ORDERED: DOCUSATE SODIUM 100 MG (COLACE) CAP PO SCH (09:00)
[2019-12-01] MEDS ORDERED: ESTRADIOL 1 MG TAB (ESTRACE) PO SCH (09:00)
--- NOTE | 2019-12-01 09:00 | NUR ---
AM shift assessment completed. Vital signs obtained by [employer] Nursing Students. See interventions. Plan of care reviewed with patient, patient verbalizes understanding and questions answered. Shower set up at this time. Small BM noted. Scheduled Colace, Motrin, Reglan, Estadiol, and Percocet PO given at this time. Saline lock DC'd, tip intact, band-aid applied to the site.
--- NOTE | 2019-12-01 10:36 | NUR ---
Discharge instructions and medications reviewed with patient both written and verbally. Patient verbalizes understanding and questions answered. Abdominal binder provided for patient comfort.
--- NOTE | 2019-12-01 10:45 | NUR ---
Patient discharged at this time via wheelchair and accompanied down to awaiting private vehicle by this RN. No signs or symptoms of distress noted.
== END 2019-12-01 10:45 | disposition home or self-care (01) | DRG 743 ==
LOC: 4TH 06:02 → SURG 06:03 → WS 10:10
PROVIDERS: ADMIT Obstetrics & Gynecology; ATTEND Obstetrics & Gynecology
PROC: 0UT70ZZ Resection of Bilateral Fallopian Tubes, Open Approach (ICD-10-PCS; 2019-11-30)
PROC: 0UT20ZZ Resection of Bilateral Ovaries, Open Approach (ICD-10-PCS; 2019-11-30)
PROC: 0UT90ZZ Resection of Uterus, Open Approach (ICD-10-PCS; principal; 2019-11-30 07:13)
DX: N80.0 Endometriosis of uterus (principal); D25.9 Leiomyoma of uterus, unspecified; N94.6 Dysmenorrhea, unspecified; Z88.5 Allergy status to narcotic agent; N83.201 Unspecified ovarian cyst, right side; K66.0 Peritoneal adhesions (postprocedural) (postinfection)
CPT/HCPCS: 36415; 84703; 85025; 86850; 86900; 86901; 87081; 94664

== ENCOUNTER 2019-12-21 21:53 | Emergency (ER) | payer MEDICAID ==
[~2019-12-21] VITALS: Ht 163 cm; Wt 112.6 kg
[~2019-12-21 21:53] MED LIST changes: +DCS100C PO; +IBUP-1780 PO; +OXYC1TAB87 PO
[2019-12-21 21:57] VITALS: BP 131/107
[2019-12-21] MEDS ORDERED: SMZ/TMP (22:06)
[2019-12-21] MEDS ORDERED: CLOT15CR6 (22:06)
--- NOTE | 2019-12-21 22:13 | ED Integumentary General ---
General Chief Complaint: Skin/Wound Problems Stated Complaint: HYSTERECTOMY INCISION PROBLEM Source: patient, old records Exam Limitations: no limitations History of Present Illness Date Seen by Provider: Dec 21, 2019 Time Seen by Provider: 21:58 Initial Comments This 24-year-old young lady presents to the emergency room with complaints of a wound dehiscence from her hysterectomy. She had been seen by Dr. Echevarria approximately a week ago for drainage from the wound. She reports wound was cultured by Dr. Echevarria but results are not available. She was placed on Lotrisone topically and Bactrim orally. She denies any fever or chills. Allergies and Home Medications Allergies Coded Allergies: morphine (Verified Allergy, Unknown, ITCHING, 11/23/19) Patient Home Medication List Home Medication List Reviewed: Yes Review of Systems Review of Systems Constitutional: no symptoms reported EENTM: no symptoms reported Respiratory: no symptoms reported Cardiovascular: no symptoms reported Gastrointestinal: no symptoms reported Genitourinary: no symptoms reported : No Musculoskeletal: no symptoms reported Skin: see HPI Psychiatric/Neurological: No Symptoms Reported Endocrine: No Symptoms Reported Past Somhltg-Uxqqzs-Tlsbyv Hx Patient Social History Alcohol Use: Occasionally Uses Recreational Drug Use: No Smoking Status: Current Everyday Smoker Type Used: Cigarettes Recent Foreign Travel: No Contact w/Someone Who Travel: No Recent Hopitalizations: No Physical Abuse: No Sexual Abuse: No Mistreated: No Fear: No Immunizations Up To Date Tetanus Booster (TDap): Less than 5yrs Date of Influenza Vaccine: Apr 15, 2014 Seasonal Allergies Seasonal Allergies: No Past Medical History Surgeries: Yes (c/s x2) Section, Gallbladder, Hysterectomy, 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 Respiratory: No Currently Using CPAP: No Currently Using BIPAP: No Cardiac: No Neurological: No 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, 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 Sexually Transmitted Disease: No HIV/AIDS: No Genitourinary: No Gastrointestinal: No Musculoskeletal: No Endocrine: No HEENT: No Cancer: No Psychosocial: Yes ADD/ADHD, Anxiety, Depression Integumentary: No Blood Disorders: No Family Medical History Family history: Gastrointestinal disease PATERNAL GRANDMOTHER, Onset:Unknown Family history: Hypertension 03 FATHER, Onset:Unknown No Pertinent Family Hx Physical Exam Vital Signs Vital Signs - First Documented 12/21/19 21:57 Temp 36.1 Pulse 97 Resp 18 B/P (MAP) 131/107 (115) Pulse Ox 98 O2 Delivery Room Air Capillary Refill : General Appearance: WD/WN, no apparent distress HEENT: normal ENT inspection Cardiovascular: regular rate, rhythm, no edema, no murmur Respiratory: lungs clear, normal breath sounds, no respiratory distress Extremities: normal inspection Neurologic/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 Incision is full of Lotrisone ointment with slight serous drainage. No inflammatory changes.) Progress/Results/Core Measures Results/Orders My Orders Orders - LUIS ROMAN MD Wound Culture (12/21/19 22:13) Vital Signs/I&O 12/21/19 21:57 Temp 36.1 Pulse 97 Resp 18 B/P (MAP) 131/107 (115) Pulse Ox 98 O2 Delivery Room Air Progress Progress Note : Progress Note Cultures of the serous drainage was obtained. Wound was covered with gauze. I instructed the patient to stop using the Lotrisone cream but continue the Bactrim. She is to have Dr. Echevarria evaluate the wound as soon as possible. Departure Impression Primary Impression: Dehiscence of incision Qualified Codes: T81.31XA - Disruption of external operation (surgical) wound, not elsewhere classified, initial encounter Additional Impression: Drainage from surgical wound Disposition: 01 HOME, SELF-CARE Condition: Stable Departure-Patient Inst. Decision time for Depature: 22:11 Referrals: NO,LOCAL PHYSICIAN (PCP) Primary Care Physician DINORA ECHEVARRIA DO (Family) Primary Care Physician Patient Instructions: Wound Dehiscence (DC) Add. Discharge Instructions: Stop the antifungal/steroid cream. Continue with Bactrim as prescribed. Follow-up with Dr. Echevarria as soon as possible. Be seen to have him evaluate the wound as soon as possible. Return to care if you have worsening symptoms including worsening inflammation around the wound, increasing drainage, fever, etc. Apply dry gauze over the wound to help keep it clean and absorb drainage. Otherwise do not disrupt the wound. You may rinse the wound in the shower with tap water. All discharge instructions reviewed with patient and/or family. Voiced understanding. Copy Copies To 1: DINORA ECHEVARRIA JOSHUA T MD Dec 21, 2019 22:13
== END 2019-12-21 22:17 | disposition home or self-care (01) ==
LOC: EDUNIT# 21:53 → ER 21:54
DX: T81.32XA Disruption of internal operation (surgical) wound, not elsewhere classified, initial encounter (principal); F17.210 Nicotine dependence, cigarettes, uncomplicated; Z88.5 Allergy status to narcotic agent; Z82.49 Family history of ischemic heart disease and other diseases of the circulatory system
CPT/HCPCS: 87070; 87077; 87205; 99282

== ENCOUNTER 2020-10-15 11:15 | Emergency (ER) | payer MEDICAID ==
[~2020-10-15] VITALS: Ht 162 cm; Wt 81.6 kg
[~2020-10-15 11:15] MED LIST changes: +CLOT15CR6; +SMZ/TMP
[2020-10-15 11:39] LABS: COLOR,URINE YELLOW; GLUCOSE, URINE (UA) NEGATIVE (NEGATIVE); KETONES,URINE TRACE (NEGATIVE); LEUKOCYTE ESTERASE ,URINE 2+ (NEGATIVE); NITRITE,URINE NEGATIVE (NEGATIVE); PH,URINE 6.5 (5-9); PROTEIN,URINE 2+ (NEGATIVE)
[2020-10-15 12:13] LABS: BACTERIA,URINE MODERATE /HPF; BILIRUBIN,URINE 1+ (NEGATIVE); CLARITY,URINE CLOUDY; WBC,URINE TNTC /HPF
[2020-10-15] MEDS ORDERED: CEFU500T63 PO (12:19)
--- NOTE | 2020-10-15 12:19 | ED GU-Female ---
General Chief Complaint: - Urinary Stated Complaint: DIFF URINATING/PAINFUL URINATION Nursing Triage Note: PT PRESENTS TO ED VIA POV FROM HOME WITH COMPLAINTS OF S/S OF UTI AND BURNING WITH URINATION X 1 WEEK. Source: patient Exam Limitations: no limitations (ROSS CARROLL APRN) History of Present Illness Date Seen by Provider: Oct 15, 2020 Time Seen by Provider: 12:17 Initial Comments To ER with urinary frequency and burning for several days. No flank pain no nausea no vomiting no fevers no chills. She does not get urinary tract infections very frequently. Timing/Duration: constant Severity/Quality: moderate Location: suprapubic Radiation: none Activities at Onset: none Prior Genitourinary Problems: none Associated Symptoms: denies symptoms, urinary frequency (ROSS CARROLL APRN) Allergies and Home Medications Allergies Coded Allergies: morphine (Verified Allergy, Unknown, ITCHING, 11/23/19) Home Medications Cefuroxime Axetil 500 Mg Tablet, 500 MG PO BID Prescribed by: ROSS CARROLL on 10/15/20 1219 Phenazopyridine HCl 100 Mg Tablet, 100 MG PO BID Prescribed by: ROSS CARROLL on 10/15/20 1221 Patient Home Medication List Home Medication List Reviewed: Yes (ROSS CARROLL APRN) Review of Systems Review of Systems Constitutional: see HPI; No chills, No fever EENTM: see HPI Respiratory: no symptoms reported Cardiovascular: no symptoms reported Genitourinary: see HPI, burning, dysuria Musculoskeletal: no symptoms reported Skin: no symptoms reported Endocrine: No Symptoms Reported (ROSS CARROLL APRN) Past Qmqseci-Jmwoea-Tyzwzh Hx Immunizations Up To Date Tetanus Booster (TDap): Less than 5yrs (ROSS CARROLL APRN) Seasonal Allergies Seasonal Allergies: No (ROSS CARROLL APRN) Past Medical History Surgeries: Yes (c/s x2) Section, Gallbladder, Hysterectomy, 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 Respiratory: No Currently Using CPAP: No Currently Using BIPAP: No Cardiac: No Neurological: No 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, 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 Sexually Transmitted Disease: No HIV/AIDS: No Genitourinary: No Gastrointestinal: No Musculoskeletal: No Endocrine: No HEENT: No Cancer: No Psychosocial: Yes ADD/ADHD, Anxiety, Depression Integumentary: No Blood Disorders: No (ROSS CARROLL APRN) Family Medical History Family history: Gastrointestinal disease PATERNAL GRANDMOTHER, Onset:Unknown Family history: Hypertension 03 FATHER, Onset:Unknown No Pertinent Family Hx (ROSS CARROLL APRN) Physical Exam Vital Signs Vital Signs - First Documented 10/15/20 11:32 Temp 36.9 Pulse 91 Resp 20 B/P (MAP) 131/95 (107) Pulse Ox 98 (LUIS ROMAN MD) Vital Signs Capillary Refill : Less Than 3 Seconds (ROSS CARROLL APRN) Height, Weight, BMI Height: 5'4.00" Weight: 230lbs. oz. 104.916252cu; 31.00 BMI Method:Estimated General Appearance: WD/WN, no apparent distress HEENT: PERRL/EOMI, normal ENT inspection Cardiovascular: regular rate, rhythm, no murmur Respiratory: no respiratory distress, no accessory muscle use Gastrointestinal: normal bowel sounds, non tender, soft Back: No CVA tenderness (R), No CVA tenderness (L) Neurologic/Psychiatric: alert, normal mood/affect, oriented x 3 Skin: normal color, warm/dry (ROSS CARROLL APRN) Progress/Results/Core Measures Suspected Sepsis SIRS Temperature: Pulse: 91 Respiratory Rate: 20 Blood Pressure 131 /95 Mean: 107 (ROSS CARROLL APRN) Results/Orders Lab Results Laboratory Tests Test 10/15/20 11:18 Range/Units Urine Color YELLOW Urine Clarity CLOUDY H Urine pH 6.5 5-9 Urine Specific Atkins 1.025 H 1.016-1.022 Urine Protein 2+ H NEGATIVE Urine Glucose (UA) NEGATIVE NEGATIVE Urine Ketones TRACE H NEGATIVE Urine Nitrite NEGATIVE NEGATIVE Urine Bilirubin 1+ H NEGATIVE Urine Urobilinogen 1.0 < = 1.0 MG/DL Urine Leukocyte Esterase 2+ H NEGATIVE Urine RBC (Auto) 2+ H NEGATIVE Urine RBC 10-25 H /HPF Urine WBC TNTC H /HPF Urine Squamous Epithelial Cells 5-10 /HPF Urine Crystals NONE /LPF Urine Bacteria MODERATE H /HPF Urine Casts NONE /LPF Urine Mucus NEGATIVE /LPF Urine Culture Indicated YES (LUIS ROMAN MD) My Orders Orders - LUIS ROMAN MD Ua Culture If Indicated (10/15/20 11:29) Urine Culture (7/3/21 11:18) (LUIS ROMAN MD) Vital Signs/I&O Capillary Refill : Less Than 3 Seconds (ROSS CARROLL APRN) Blood Pressure Mean: 107 Departure Impression Primary Impression: Urinary tract infection Disposition: 01 HOME, SELF-CARE Condition: Stable Departure-Patient Inst. Decision time for Depature: 12:17 (ROSS CARROLL APRN) Referrals: NO,LOCAL PHYSICIAN (PCP/Family) Primary Care Physician Patient Instructions: Urinary Tract Infection, Adult (DC) Add. Discharge Instructions: 1. Antibiotics as directed 2. Return ER for any concerns 3. Follow-up with your doctor next week All discharge instructions reviewed with patient and/or family. Voiced understanding. Scripts Phenazopyridine HCl (Pyridium) 100 Mg Tablet 100 MG PO BID, #4 TAB Prov: ROSS CARROLL APRN 10/15/20 Cefuroxime Axetil (Cefuroxime) 500 Mg Tablet 500 MG PO BID, #10 TAB Prov: ROSS CARROLL APRN 10/15/20 ATTENDING PHYSICIAN NOTE: I was physically present as attending physician in the emergency department during the care of this patient, but I was not directly involved in the decision making or delivery of care for this patient. (LUIS ROMAN MD) ROSS CARROLL APRN Oct 15, 2020 12:19 LUIS ROMAN MD Oct 16, 2020 06:30
[2020-10-15] MEDS ORDERED: PHEN-639 PO (12:21)
[2020-10-15 12:27] VITALS: BP 127/90
[2020-10-15] MEDS ORDERED: PHENAZOPYRIDINE 100 MG (PYRIDIUM) TABLET PO ONE (12:30)
[2020-10-15] MEDS ORDERED: CEFDINIR 300 MG (OMNICEF) CAP PO ONE (12:30)
== END 2020-10-15 12:27 | disposition home or self-care (01) ==
LOC: EDUNIT# 11:15 → ER 11:17
DX: N39.0 Urinary tract infection, site not specified (principal)
CPT/HCPCS: 81000; 87077; 87088; 87186; 99283

== ENCOUNTER → 2020-12-23 | Outpatient (CLI) | payer MEDICAID ==
[~2020-12-23] MED LIST changes: +CEFU500T63 PO; +PHEN-639 PO
[2020-12-23 09:25] LABS: BASOPHILS # (AUTO) 0.1 10^3/uL (0.0-0.1); BASOPHILS % (AUTO) 1 % (0-10); EOSINOPHILS # (AUTO) 0.2 10^3/uL (0.0-0.3); EOSINOPHILS % (AUTO) 3 % (0-10); HEMATOCRIT 43 % (35-52); HEMOGLOBIN 14.3 g/dL (11.5-16.0); LYMPHOCYTES # (AUTO) 2.4 10^3/uL (1.0-4.0); LYMPHOCYTES % (AUTO) 38 % (12-44); MEAN CORPUSCULAR HEMOGLOBIN 31 pg (25-34); MEAN CORPUSCULAR HGB CONC 34 g/dL (32-36); MEAN CORPUSCULAR VOLUME 93 fL (80-99); MEAN PLATELET VOLUME 11.7 fL (9.0-12.2); MONOCYTES # (AUTO) 0.4 10^3/uL (0.0-1.0); MONOCYTES % (AUTO) 6 % (0-12); NEUTROPHILS # (AUTO) 3.3 10^3/uL (1.8-7.8); NEUTROPHILS % (AUTO) 52 % (42-75); PLATELET COUNT 184 10^3/uL (130-400); WHITE BLOOD COUNT 6.4 10^3/uL (4.3-11.0)
[2020-12-23 09:49] LABS: ALBUMIN 4.5 GM/DL (3.2-4.5); BILIRUBIN,TOTAL 0.5 MG/DL (0.1-1.0); CALCIUM 9.7 MG/DL (8.5-10.1); CREATININE SERUM 0.71 MG/DL (0.60-1.30); MAGNESIUM 1.9 MG/DL (1.6-2.4); POTASSIUM 3.6 MMOL/L (3.6-5.0); TOTAL PROTEIN 7.3 GM/DL (6.4-8.2)
== END ==
LOC: LAB 07:52
PROVIDERS: ATTEND Surgery
DX: K91.2 Postsurgical malabsorption, not elsewhere classified (principal); Z90.3 Acquired absence of stomach [part of]
CPT/HCPCS: 36415; 80053; 80061; 82306; 82607; 83036; 83540; 83550; 83735; 83970; 84425; 84630; 85025

== ENCOUNTER → 2021-06-07 | Outpatient (CLI) | payer MEDICAID ==
[~2021-06-07] MED LIST changes: -DCS100C PO; +DOCU-239 PO
[2021-06-07 08:44] LABS: BASOPHILS # (AUTO) 0.1 10^3/uL (0.0-0.1); BASOPHILS % (AUTO) 1 % (0-10); EOSINOPHILS # (AUTO) 0.2 10^3/uL (0.0-0.3); EOSINOPHILS % (AUTO) 4 % (0-10); HEMATOCRIT 39 % (35-52); HEMOGLOBIN 13.5 g/dL (11.5-16.0); LYMPHOCYTES # (AUTO) 2.2 10^3/uL (1.0-4.0); LYMPHOCYTES % (AUTO) 37 % (12-44); MEAN CORPUSCULAR HEMOGLOBIN 31 pg (25-34); MEAN CORPUSCULAR HGB CONC 35 g/dL (32-36); MEAN CORPUSCULAR VOLUME 89 fL (80-99); MEAN PLATELET VOLUME 10.7 fL (9.0-12.2); MONOCYTES # (AUTO) 0.3 10^3/uL (0.0-1.0); MONOCYTES % (AUTO) 6 % (0-12); NEUTROPHILS # (AUTO) 3.1 10^3/uL (1.8-7.8); NEUTROPHILS % (AUTO) 53 % (42-75); PLATELET COUNT 220 10^3/uL (130-400); WHITE BLOOD COUNT 5.8 10^3/uL (4.3-11.0)
[2021-06-07 09:21] LABS: ALBUMIN 4.3 GM/DL (3.2-4.5); BILIRUBIN,TOTAL 0.5 MG/DL (0.1-1.0); CALCIUM 9.2 MG/DL (8.5-10.1); CREATININE SERUM 0.68 MG/DL (0.60-1.30); POTASSIUM 3.9 MMOL/L (3.6-5.0); TOTAL PROTEIN 6.9 GM/DL (6.4-8.2)
== END ==
LOC: LAB
PROVIDERS: ATTEND Nurse Practitioner
DX: K91.2 Postsurgical malabsorption, not elsewhere classified (principal); Z90.3 Acquired absence of stomach [part of]
CPT/HCPCS: 36415; 80053; 80061; 82306; 82607; 83036; 83540; 83550; 83735; 83970; 84425; 84630; 85025

== ENCOUNTER → 2021-07-20 | Outpatient (CLI) | payer MEDICAID | LOC: CARD 08:00 | PROVIDERS: ATTEND Pediatrics | DX: R00.2 Palpitations (principal) | CPT/HCPCS: 93225; 93226 ==

== ENCOUNTER 2021-09-18 17:31 | Emergency (ER) | payer MEDICAID ==
[~2021-09-18] VITALS: Ht 160 cm; Wt 65.0 kg
--- NOTE | 2021-09-18 18:07 | ED Integumentary General ---
General Chief Complaint: Skin/Wound Problems Stated Complaint: SKIN REMOVAL SURGERY/WOUNDS NOT HEALING Nursing Triage Note: PT REPORTS TO ED FOR SURGICAL INCISION NOT HEALING. PT HAD EXTRA SKIN REMOVAL THREE WEEKS AGO IN [place] BY DR. TAI BUT HAS NOTICED HER INCISION IS NOT HEALING. PT REPORTS THERE IS MODERATE "RUST" COLORED DRAINAGE FROM INCISION SITE. DENIES ANY FEVERS. REPORTS SHE HAS NOT GOTTEN HELP FROM SURGEONS RN AND IS CONCERNED. PT AMB TO ROOM 03 WITHOUT DIFFICULTY. Source: patient Exam Limitations: no limitations (ANDIE BORJAS) History of Present Illness Date Seen by Provider: Sep 18, 2021 Time Seen by Provider: 17:42 Initial Comments Patient to the ER by private conveyance from home with chief complaint 3 weeks ago she had a surgery to remove excess skin across her abdomen by Dr. Hdz at [place]. Since that time she has been having some drainage from the midline of her incision where it has pulled apart a couple centimeters and she has been covering it with maternal pads to absorb it. She has been calling the surgeon's nurse but not getting any help so she came in for reassessment. She is not having any fevers nausea vomiting diarrhea dysuria. She is not having any pain or using anything for pain. She is not diabetic nor she on any immunocompromising medications. Smokes half pack per day. (ANDIE BORJAS) Allergies and Home Medications Allergies Coded Allergies: morphine (Verified Allergy, Unknown, ITCHING, 11/23/19) Patient Home Medication List Home Medication List Reviewed: Yes (ANDIE BORJAS) Cefuroxime Axetil (Cefuroxime) 500 Mg Tablet, 500 MG PO BID Prescribed by: ROSS CARROLL on 10/15/20 1219 Cephalexin (Cephalexin) 500 Mg Tablet, 500 MG PO QID Prescribed by: ANDIE BORJAS on 09/18/21 1830 Clotrimazole/Betamethasone Dip (Clotrimazole-Betamethasone Crm) 15 Gm Cream..g., (Reported) Entered as Reported by: JETHRO CRAIG on 12/21/192205 Phenazopyridine HCl (Pyridium) 100 Mg Tablet, 100 MG PO BID Prescribed by: ROSS CARROLL on 10/15/20 1221 [Smz/Tmp] , (Reported) Entered as Reported by: JETHRO CRAIG on 12/21/192205 Review of Systems Review of Systems Constitutional: No chills, No diaphoresis EENTM: No ear discharge, No hearing loss, No ear pain Respiratory: No cough, No short of breath Cardiovascular: No chest pain, No edema Gastrointestinal: No abdominal pain, No nausea Genitourinary: No discharge, No dysuria Musculoskeletal: No back pain, No joint pain Skin: see HPI (ANDIE BORJAS) All Other Systems Reviewed Negative Unless Noted: Yes (ANDIE BORJAS) Past Mxcymkm-Sbgiwq-Pqjxkd Hx Patient Social History Tobacco Use?: Yes Tobacco type used: Cigarettes Smoking Status: Current Everyday Smoker Smokeless Tobacco Frequency: Current Everyday User Use of E-Cig and/or Vaping dev: No Substance use?: No Alcohol Use?: No Pt feels they are or have been: No (ANDIE BORJAS) Immunizations Up To Date Tetanus Booster (TDap): Less than 5yrs (ANDIE BORJAS) Seasonal Allergies Seasonal Allergies: No (ANDIE BORJAS) Past Medical History Surgery/Hospitalization HX: DENIES PMH. SURGERY;GALLBLADDER REMOVAL 2011, TUBAL 2017, HYST. 2019, GASTRIC SLEEVE 2020, AND SKIN REMOVAL 08/25/2021. 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 Sexually Transmitted Disease: No HIV/AIDS: No Genitourinary: No Gastrointestinal: No Musculoskeletal: No Endocrine: No HEENT: No Cancer: No Psychosocial: Yes ADD/ADHD, Anxiety, Depression Integumentary: No Blood Disorders: No (NADIE BORJAS) Family Medical History Family history: Gastrointestinal disease PATERNAL GRANDMOTHER, Onset:Unknown Family history: Hypertension 03 FATHER, Onset:Unknown No Pertinent Family Hx (ANDIE BORJAS) Physical Exam Vital Signs Vital Signs - First Documented 09/18/21 09/18/21 17:41 18:58 Temp 36.7 Pulse 94 Resp 18 B/P (MAP) 118/73 (88) Pulse Ox 98 O2 Delivery Room Air (CLARITZA,JOSE LUIS K DO) Vital Signs Capillary Refill : Less Than 3 Seconds (ANDIE BORJAS) General Appearance: WD/WN, no apparent distress HEENT: PERRL/EOMI, pharynx normal Neck: full range of motion, normal inspection Cardiovascular: normal peripheral pulses, regular rate, rhythm (90) Respiratory: no respiratory distress, no accessory muscle use Gastrointestinal: normal bowel sounds, soft, other (Nelida pink margins of the transabdominal surgical wound with a central site having some tension and pulled apart about 1-1/2 to 2 cm diameter irregular. There is thin, clear brown serous fluid expressed easily from the wound. No purulence.) (ANDIE BORJAS) Progress/Results/Core Measures Results/Orders Lab Results Laboratory Tests Test 09/18/21 17:49 Range/Units White Blood Count 6.4 4.3-11.0 10^3/uL Red Blood Count 3.57 L 3.80-5.11 10^6/uL Hemoglobin 10.4 L 11.5-16.0 g/dL Hematocrit 32 L 35-52 % Mean Corpuscular Volume 89 80-99 fL Mean Corpuscular Hemoglobin 29 25-34 pg Mean Corpuscular Hemoglobin Concent 33 32-36 g/dL Red Cell Distribution Width 12.6 10.0-14.5 % Platelet Count 261 130-400 10^3/uL Mean Platelet Volume 10.6 9.0-12.2 fL Immature Granulocyte % (Auto) 0 % Neutrophils (%) (Auto) 60 42-75 % Lymphocytes (%) (Auto) 27 12-44 % Monocytes (%) (Auto) 11 0-12 % Eosinophils (%) (Auto) 2 0-10 % Basophils (%) (Auto) 1 0-10 % Neutrophils # (Auto) 3.8 1.8-7.8 10^3/uL Lymphocytes # (Auto) 1.7 1.0-4.0 10^3/uL Monocytes # (Auto) 0.7 0.0-1.0 10^3/uL Eosinophils # (Auto) 0.1 0.0-0.3 10^3/uL Basophils # (Auto) 0.0 0.0-0.1 10^3/uL Immature Granulocyte # (Auto) 0.0 0.0-0.1 10^3/uL Sodium Level 141 135-145 MMOL/L Potassium Level 3.7 3.6-5.0 MMOL/L Chloride Level 106 98-107 MMOL/L Carbon Dioxide Level 25 21-32 MMOL/L Anion Gap 10 5-14 MMOL/L Blood Urea Nitrogen 8 7-18 MG/DL Creatinine 0.66 0.60-1.30 MG/DL Estimat Glomerular Filtration Rate 123 BUN/Creatinine Ratio 12 Glucose Level 99 70-105 MG/DL Calcium Level 9.2 8.5-10.1 MG/DL Corrected Calcium 9.2 8.5-10.1 MG/DL Total Bilirubin 0.2 0.1-1.0 MG/DL Aspartate Amino Transf (AST/SGOT) 12 5-34 U/L Alanine Aminotransferase (ALT/SGPT) 9 0-55 U/L Alkaline Phosphatase 17 L 40-136 U/L C-Reactive Protein High Sensitivity 3.70 H 0.00-0.50 MG/DL Total Protein 7.0 6.4-8.2 GM/DL Albumin 4.0 3.2-4.5 GM/DL (JOSE LUIS JERRY DO) Medications Given in ED Current Medications Medications Dose Ordered Sig/Ernestine Route Start Time Stop Time Status Last Admin Dose Admin Iohexol 100 ml ONCE ONCE IV 09/18/21 18:15 09/18/21 18:16 DC 09/18/21 18:24 83 ML Sodium Chloride 100 ml ONCE ONCE IV 09/18/21 18:15 09/18/21 18:16 DC 09/18/21 18:24 80 ML (JOSE LUIS JERRY DO) Vital Signs/I&O 09/18/21 09/18/21 17:41 18:58 Temp 36.7 36.7 Pulse 94 Resp 18 18 B/P (MAP) 118/73 (88) 106/69 Pulse Ox 98 O2 Delivery Room Air Room Air (JOSE LUIS JERRY DO) Blood Pressure Mean: 88 Progress Progress Note : Time: 18:05 Progress Note Wound has some breakdown in the middle with serous fluid coming from likely a seroma. We will get a CT and some basic labs to rule out abscess. She does not have a fever but her heart rate is in the 90s which could also be from anxiety. We will Pass care of the patient over to Dr. JERRY for results of the CT and labs. We will provide her with a prescription for antibiotics at the first sign of infection. Patient has been given return precautions and is okay with this plan. Finally we will refer her on to local wound care at [facility] for outpat ient management of her surgical wound and seroma. (ANDIE BORJAS) Progress Note : Progress Note 1800--ASSUMED CARE FROM DR. BORJAS, LAB AND CT PENDING. PT SITTING KITTITIAN-STYLE AND WALKS AND MOVES WITHOUT DIFFICULTY. NO COMPLAINTS OF PAIN AT DISMISSAL (JOSE LUIS JERRY DO) Diagnostic Imaging Diagonstic Imaging: CT Plain Films/CT/US/NM/MRI: abdomen, pelvis Reviewed: Reviewed by Me (ANDIE BORJAS) Comments CT ABDOMEN/PELVIS--PER RADIOLOGIST REPORT AT 1838 Lung bases are clear. Liver appears normal. The gallbladder surgically absent. Portal vein is patent. Common duct is not dilated. The pancreas appears normal. Spleen is upper limits of normal in size. Adrenals are normal. Kidneys appear normal. Aorta and IVC appear normal. Small bowel is not dilated. Colon is unremarkable. Urinary bladder is normal. Uterus is surgically absent. There are postoperative changes from a gastric stapling procedure. There is a thin layer of fluid in the anterior abdominal wall superficial to the muscular layer that measures 12 mm in thickness and spans left to right for a distance of approximately 15 cm. It extends in the anterior abdominal wall from the xiphoid to the pelvis. IMPRESSION: Large anterior abdominal fluid collection superficial to the muscles with some associated induration of the subcutaneous fat in the abdominal wall. This is likely a postoperative seroma but would be amenable to percutaneous drainage for analysis. (JOSE LUIS JERRY DO) Departure Communication (Admissions) 0641--CALLED DR. YUMIKO TAI'S OFFICE NUMBER. 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 HORVATH, HE ADVISES TO MAKE SURE PT WEARS ABDOMINAL BINDER AT ALL TIMES, AND CALL DR. TAI'S OFFICE IN THE MORNING FOR FOLLOW UP APPOINTMENT. (JOSE LUIS JERRY DO) Impression Primary Impression: Surgical wound breakdown Qualified Codes: T81.31XA - Disruption of external operation (surgical) wound, not elsewhere classified, initial encounter Additional Impression: Seroma after procedure Disposition: 01 HOME, SELF-CARE Condition: Stable Departure-Patient Inst. Decision time for Depature: 18:49 (JOSE LUIS JERRY DO) Referrals: NO,LOCAL PHYSICIAN (PCP) Primary Care Physician ARGELIA BALDERAS MD Patient Instructions: Surgical Wound (DC) Add. Discharge Instructions: You have a collection of sterile fluid under the skin related to the healing wound. Until the wound heals the seroma will not go away and will continue to drain thin, clear brownish straw-colored fluid. If it becomes thick, purulent or the surrounding tissue becomes bright red, increasing pain or you develop nausea, vomiting, fever then you are to start the antibiotics and contact your surgeon promptly. You may also return to the ER if you need help managing symptoms. Keflex 500 mg 4 times a day if you develop wound infection for a week. All discharge instructions reviewed with patient and/or family. Voiced understanding. CALL YOUR SURGEON'S OFFICE IN THE MORNING FOR FOLLOW UP APPOINTMENT WEAR YOUR ABDOMINAL BINDER AT ALL TIMES Scripts Cephalexin (Cephalexin) 500 Mg Tablet 500 MG PO QID for 7 Days, #28 TAB 0 Refills Prov: ANDIE BORJAS 09/18/21 Copy Copies To 1: ARGELIA BALDERAS MD, TITUS J Sep 18, 2021 18:07 JOSE LUIS JERRY DO Sep 18, 2021 18:38
[2021-09-18 18:08] LABS: BASOPHILS % (AUTO) 1 % (0-10); EOSINOPHILS # (AUTO) 0.1 10^3/uL (0.0-0.3); EOSINOPHILS % (AUTO) 2 % (0-10); HEMATOCRIT 32 % (35-52); HEMOGLOBIN 10.4 g/dL (11.5-16.0); LYMPHOCYTES # (AUTO) 1.7 10^3/uL (1.0-4.0); LYMPHOCYTES % (AUTO) 27 % (12-44); MEAN CORPUSCULAR HEMOGLOBIN 29 pg (25-34); MEAN CORPUSCULAR HGB CONC 33 g/dL (32-36); MEAN CORPUSCULAR VOLUME 89 fL (80-99); MEAN PLATELET VOLUME 10.6 fL (9.0-12.2); MONOCYTES # (AUTO) 0.7 10^3/uL (0.0-1.0); MONOCYTES % (AUTO) 11 % (0-12); NEUTROPHILS # (AUTO) 3.8 10^3/uL (1.8-7.8); NEUTROPHILS % (AUTO) 60 % (42-75); PLATELET COUNT 261 10^3/uL (130-400); WHITE BLOOD COUNT 6.4 10^3/uL (4.3-11.0)
[2021-09-18] MEDS ORDERED: IOHEXOL 350 MG/ML 100 ML (OMNIPAQUE 350) VIAL IV ONE (18:15)
[2021-09-18] MEDS ORDERED: NS 100 ML (IVPB) BAG IV ONE (18:15)
[2021-09-18 18:19] LABS: POTASSIUM 3.7 MMOL/L (3.6-5.0)
[2021-09-18 18:20] LABS: CALCIUM 9.2 MG/DL (8.5-10.1)
[2021-09-18 18:23] LABS: BILIRUBIN,TOTAL 0.2 MG/DL (0.1-1.0)
[2021-09-18 18:25] LABS: CREATININE SERUM 0.66 MG/DL (0.60-1.30)
[2021-09-18] MEDS ORDERED: CEPH500T PO (18:30)
--- NOTE | 2021-09-18 18:34 | Diagnostic Imaging Report ---
PROCEDURE: CT abdomen and pelvis with contrast. TECHNIQUE: Multiple contiguous axial images were obtained through the abdomen and pelvis after administration of intravenous contrast. Auto Exposure Controls were utilized during the CT exam to meet ALARA standards for radiation dose reduction. All CT scans use one or more of the following dose optimizing techniques: automated exposure control, MA and/or KvP adjustment based on patient size and exam type or iterative reconstruction. INDICATION: Postoperative wound drainage Lung bases are clear. Liver appears normal. The gallbladder surgically absent. Portal vein is patent. Common duct is not dilated. The pancreas appears normal. Spleen is upper limits of normal in size. Adrenals are normal. Kidneys appear normal. Aorta and IVC appear normal. Small bowel is not dilated. Colon is unremarkable. Urinary bladder is normal. Uterus is surgically absent. There are postoperative changes from a gastric stapling procedure. There is a thin layer of fluid in the anterior abdominal wall superficial to the muscular layer that measures 12 mm in thickness and spans left to right for a distance of approximately 15 cm. It extends in the anterior abdominal wall from the xiphoid to the pelvis. IMPRESSION: Large anterior abdominal fluid collection superficial to the muscles with some associated induration of the subcutaneous fat in the abdominal wall. This is likely a postoperative seroma but would be amenable to percutaneous drainage for analysis. Dictated by: Dictated on workstation # [id number]
[2021-09-18 18:58] VITALS: BP 106/69
== END 2021-09-18 18:58 | disposition home or self-care (01) ==
LOC: EDUNIT# 17:31 → ER 17:34
DX: T81.31XA Disruption of external operation (surgical) wound, not elsewhere classified, initial encounter (principal); L76.34 Postprocedural seroma of skin and subcutaneous tissue following other procedure; F17.210 Nicotine dependence, cigarettes, uncomplicated; F17.220 Nicotine dependence, chewing tobacco, uncomplicated
CPT/HCPCS: 36415; 74177; 80053; 85025; 86141

== ENCOUNTER → 2021-09-27 | Outpatient (CLI) | payer MEDICAID ==
[~2021-09-27] MED LIST changes: +CEPH500T PO
[2021-09-27 11:13] LABS: BASOPHILS # (AUTO) 0.1 10^3/uL (0.0-0.1); BASOPHILS % (AUTO) 1 % (0-10); EOSINOPHILS # (AUTO) 0.2 10^3/uL (0.0-0.3); EOSINOPHILS % (AUTO) 3 % (0-10); HEMATOCRIT 35 % (35-52); HEMOGLOBIN 11.2 g/dL (11.5-16.0); LYMPHOCYTES # (AUTO) 1.7 10^3/uL (1.0-4.0); LYMPHOCYTES % (AUTO) 25 % (12-44); MEAN CORPUSCULAR HEMOGLOBIN 29 pg (25-34); MEAN CORPUSCULAR HGB CONC 32 g/dL (32-36); MEAN CORPUSCULAR VOLUME 89 fL (80-99); MEAN PLATELET VOLUME 10.4 fL (9.0-12.2); MONOCYTES # (AUTO) 0.5 10^3/uL (0.0-1.0); MONOCYTES % (AUTO) 7 % (0-12); NEUTROPHILS # (AUTO) 4.3 10^3/uL (1.8-7.8); NEUTROPHILS % (AUTO) 64 % (42-75); PLATELET COUNT 281 10^3/uL (130-400); WHITE BLOOD COUNT 6.8 10^3/uL (4.3-11.0)
[2021-09-27 11:51] LABS: ERYTHROCYTE SEDIMENTATION RATE 41 MM/HR (0-20)
== END ==
LOC: LAB 10:55
PROVIDERS: ATTEND Family Medicine
DX: T81.31XA Disruption of external operation (surgical) wound, not elsewhere classified, initial encounter (principal); L76.34 Postprocedural seroma of skin and subcutaneous tissue following other procedure; E66.01 Morbid (severe) obesity due to excess calories; K95.81 Infection due to other bariatric procedure; F17.210 Nicotine dependence, cigarettes, uncomplicated; D46.4 Refractory anemia, unspecified
CPT/HCPCS: 36415; 82306; 82607; 82728; 82746; 83540; 83550; 84134; 85025; 85652; 86141

== ENCOUNTER → 2021-09-27 | Outpatient (CLI) | payer MEDICAID | LOC: WOUNDCARE 08:48 | PROVIDERS: ATTEND Family Medicine | DX: T81.31XA Disruption of external operation (surgical) wound, not elsewhere classified, initial encounter (principal); L76.34 Postprocedural seroma of skin and subcutaneous tissue following other procedure; E66.01 Morbid (severe) obesity due to excess calories; K95.81 Infection due to other bariatric procedure; F17.210 Nicotine dependence, cigarettes, uncomplicated; D46.4 Refractory anemia, unspecified | CPT/HCPCS: 11043; 87070; 87077; 87186; 87205 ==

== ENCOUNTER → 2021-09-28 | Outpatient (CLI) | payer MEDICAID ==
[~2021-09-28] MED LIST changes: +CATHETER FLUSH 10 ML SYR IV PRN; +HOLD METFORMIN - RECEIVED CONTRAST 20 ML VIAL IV SCH; +IOHEXOL 350 MG/ML 100 ML (OMNIPAQUE 350) VIAL IV ONE; +NS 100 ML (IVPB) BAG IV ONE
--- NOTE | 2021-09-28 11:17 | Diagnostic Imaging Report ---
EXAMINATION: CT abdomen and pelvis with intravenous contrast. TECHNIQUE: Multiple contiguous axial images were obtained through the abdomen and pelvis after the uneventful administration of intravenous contrast. All CT scans use one or more of the following dose optimizing techniques: automated exposure control, MA and/or KvP adjustment based on patient size and exam type or iterative reconstruction. HISTORY: Postprocedural complication, seroma COMPARISON: 09/18/2021 FINDINGS: Lung bases: Bibasilar dependent atelectasis. Solid organs: The liver is normal without focal lesion. The gallbladder is surgically absent. There is no biliary ductal dilation. Pancreas is normal. Spleen is normal. Adrenal glands are normal. The kidneys are normal without hydronephrosis. Bowel: Surgical changes of the stomach. No bowel obstruction. The colon and appendix are normal. Peritoneum: There is no intraperitoneal free fluid or free air. No suspicious lymphadenopathy. Vasculature: Normal without aneurysm. Musculoskeletal: No suspicious osseous lesion or compression fracture. Surgical changes of the anterior abdominal wall. There is wound dehiscence inferiorly with a drainage catheter in place. There is a loculated fluid collection which contains foci of air seen along the anterior abdominal wall. Largest measurements measured 13.7 x 17.0 x 2.3 cm. Pelvis: The uterus is surgically absent. No adnexal mass. The urinary bladder is normal. IMPRESSION: 1. Loculated air and fluid collection along the anterior abdominal wall with drainage catheter present inferiorly near the area of wound dehiscence. Overall size and distribution is not significantly changed from 09/18/2021 but there is increased air component. Dictated by: Dictated on workstation # [id number]
== END ==
LOC: RAD 09:45
PROVIDERS: ATTEND Family Medicine
DX: K95.81 Infection due to other bariatric procedure (principal)
CPT/HCPCS: 74177

== ENCOUNTER → 2021-10-09 | Outpatient (CLI) | payer MEDICAID ==
[~2021-10-09] MED LIST changes: -CATHETER FLUSH 10 ML SYR IV PRN; -HOLD METFORMIN - RECEIVED CONTRAST 20 ML VIAL IV SCH; -IOHEXOL 350 MG/ML 100 ML (OMNIPAQUE 350) VIAL IV ONE; -NS 100 ML (IVPB) BAG IV ONE
== END ==
LOC: WOUNDCARE 08:57
PROVIDERS: ATTEND Family Medicine
DX: T81.31XA Disruption of external operation (surgical) wound, not elsewhere classified, initial encounter (principal); E66.01 Morbid (severe) obesity due to excess calories; D46.4 Refractory anemia, unspecified; E55.9 Vitamin D deficiency, unspecified; E44.0 Moderate protein-calorie malnutrition; B95.61 Methicillin susceptible Staphylococcus aureus infection as the cause of diseases classified elsewhere; B96.5 Pseudomonas (aeruginosa) (mallei) (pseudomallei) as the cause of diseases classified elsewhere; I96 Gangrene, not elsewhere classified; F17.210 Nicotine dependence, cigarettes, uncomplicated
CPT/HCPCS: 11042; 11045; 97605

== ENCOUNTER → 2021-10-13 | Outpatient (CLI) | payer MEDICAID | LOC: WOUNDCARE 08:46 | PROVIDERS: ATTEND Family Medicine | DX: S31.103A Unspecified open wound of abdominal wall, right lower quadrant without penetration into peritoneal cavity, initial encounter (principal); X58.XXXA Exposure to other specified factors, initial encounter; J45.909 Unspecified asthma, uncomplicated | CPT/HCPCS: 99214 ==

== ENCOUNTER → 2021-10-17 | Outpatient (CLI) | payer MEDICAID | LOC: WOUNDCARE 09:25 | PROVIDERS: ATTEND Family Medicine | DX: T81.31XA Disruption of external operation (surgical) wound, not elsewhere classified, initial encounter (principal); E66.01 Morbid (severe) obesity due to excess calories; F17.210 Nicotine dependence, cigarettes, uncomplicated; D46.4 Refractory anemia, unspecified; E55.9 Vitamin D deficiency, unspecified; E44.0 Moderate protein-calorie malnutrition; A49.01 Methicillin susceptible Staphylococcus aureus infection, unspecified site; I96 Gangrene, not elsewhere classified; Z68.23 Body mass index [BMI] 23.0-23.9, adult | CPT/HCPCS: 11042 ==

== ENCOUNTER → 2021-10-30 | Outpatient (CLI) | payer MEDICAID | LOC: WOUNDCARE 08:45 | PROVIDERS: ATTEND Family Medicine | DX: T81.31XA Disruption of external operation (surgical) wound, not elsewhere classified, initial encounter (principal); E66.01 Morbid (severe) obesity due to excess calories; E55.9 Vitamin D deficiency, unspecified; D46.4 Refractory anemia, unspecified; E44.1 Mild protein-calorie malnutrition; I96 Gangrene, not elsewhere classified | CPT/HCPCS: 11042 ==

== ENCOUNTER → 2021-11-09 | Outpatient (CLI) | payer MEDICAID | LOC: WOUNDCARE 11:25 | PROVIDERS: ATTEND Family Medicine | DX: T81.31XA Disruption of external operation (surgical) wound, not elsewhere classified, initial encounter (principal); I96 Gangrene, not elsewhere classified; E66.01 Morbid (severe) obesity due to excess calories; E55.9 Vitamin D deficiency, unspecified; E44.0 Moderate protein-calorie malnutrition; D46.4 Refractory anemia, unspecified; Z68.23 Body mass index [BMI] 23.0-23.9, adult | CPT/HCPCS: 11042 ==

== ENCOUNTER → 2021-11-13 | Outpatient (CLI) | payer MEDICAID | LOC: WOUNDCARE 10:07 | PROVIDERS: ATTEND Family Medicine | DX: T81.31XA Disruption of external operation (surgical) wound, not elsewhere classified, initial encounter (principal); E66.01 Morbid (severe) obesity due to excess calories; D46.4 Refractory anemia, unspecified; E55.9 Vitamin D deficiency, unspecified; E44.0 Moderate protein-calorie malnutrition; I96 Gangrene, not elsewhere classified | CPT/HCPCS: 11042 ==

== ENCOUNTER → 2021-11-30 | Outpatient (CLI) | payer MEDICAID | LOC: WOUNDCARE 13:21 | PROVIDERS: ATTEND Family Medicine | DX: T81.31XA Disruption of external operation (surgical) wound, not elsewhere classified, initial encounter (principal); E66.01 Morbid (severe) obesity due to excess calories; E55.9 Vitamin D deficiency, unspecified; D46.4 Refractory anemia, unspecified; E44.1 Mild protein-calorie malnutrition; I96 Gangrene, not elsewhere classified | CPT/HCPCS: 11042 ==

== ENCOUNTER → 2021-12-14 | Outpatient (CLI) | payer MEDICAID | LOC: WOUNDCARE 15:22 | PROVIDERS: ATTEND Family Medicine | DX: T81.31XA Disruption of external operation (surgical) wound, not elsewhere classified, initial encounter (principal); E66.01 Morbid (severe) obesity due to excess calories; D46.4 Refractory anemia, unspecified; E55.9 Vitamin D deficiency, unspecified; E44.0 Moderate protein-calorie malnutrition; I96 Gangrene, not elsewhere classified; Z68.23 Body mass index [BMI] 23.0-23.9, adult | CPT/HCPCS: 11042 ==

== ENCOUNTER → 2021-12-20 | Outpatient (CLI) | payer MEDICAID | LOC: WOUNDCARE 15:16 | PROVIDERS: ATTEND Family Medicine | DX: T81.31XA Disruption of external operation (surgical) wound, not elsewhere classified, initial encounter (principal); E66.01 Morbid (severe) obesity due to excess calories; E55.9 Vitamin D deficiency, unspecified; D46.4 Refractory anemia, unspecified; E44.1 Mild protein-calorie malnutrition; I96 Gangrene, not elsewhere classified | CPT/HCPCS: 11042 ==

== ENCOUNTER → 2021-12-28 | Outpatient (CLI) | payer MEDICAID | LOC: WOUNDCARE 15:24 | PROVIDERS: ATTEND Family Medicine | DX: T81.31XA Disruption of external operation (surgical) wound, not elsewhere classified, initial encounter (principal); E66.01 Morbid (severe) obesity due to excess calories; D46.4 Refractory anemia, unspecified; E55.9 Vitamin D deficiency, unspecified; E44.0 Moderate protein-calorie malnutrition; I96 Gangrene, not elsewhere classified | CPT/HCPCS: 11042 ==

== ENCOUNTER 2022-02-20 14:33 | Emergency (ER) | payer MEDICAID ==
[~2022-02-20] VITALS: Ht 162.5 cm; Wt 70.5 kg
[2022-02-20] MEDS ORDERED: KETOROLAC 30 MG/ML VIAL IM PRN (15:15)
--- NOTE | 2022-02-20 15:16 | ED Back Pain ---
General Chief Complaint: Back Problems Stated Complaint: LOWER BACK PAIN Nursing Triage Note: pt states she hurt her back 10ish years ago, states the past few weeks she has had increased significant lower back pain. does not see anyone for her chronic pain, takes otc pain medications Source of Information: Patient Exam Limitations: No Limitations (VERONICA NINO APRN) History of Present Illness Date Seen by Provider: Feb 20, 2022 Time Seen by Provider: 15:13 Initial Comments This is a well-appearing 26-year-old female who presented the ER with complaints of low back pain that radiates down her right leg and into her groin. Has history of injury 15 years ago, has had intermittent complications since. Her last imaging was a thoracic and lumbar x-ray in 2018. Denies any recent falls or trauma, no heavy lifting, bending, twisting. Has taken qbfj-kmu-nzxmqtr pain medications with no relief. No loss of bowel or bladder control. No numbness or saddle anesthesia. No fever, chills, nausea, vomiting, abdominal pain. (VERONICA NINO APRN) Allergies and Home Medications Allergies Coded Allergies: morphine (Verified Allergy, Unknown, ITCHING, 11/23/19) Patient Home Medication List Home Medication List Reviewed: Yes (VERONICA NINO APRN) Cefuroxime Axetil (Cefuroxime) 500 Mg Tablet, 500 MG PO BID Prescribed by: ROSS CARROLL on 10/15/20 1219 Cephalexin (Cephalexin) 500 Mg Tablet, 500 MG PO QID Prescribed by: ANDIE BORJAS on 09/18/21 1830 Clotrimazole/Betamethasone Dip (Clotrimazole-Betamethasone Crm) 15 Gm Cream..g., (Reported) Entered as Reported by: JETHRO CRAIG on 12/21/19 220 Hydrocodone/Acetaminophen (Hydrocodone-Acetamin 5-325 mg) 5 Mg-325 Mg Tablet, 1 TAB PO Q6H PRN for PAIN-MODERATE (5-7) Prescribed by: VERONICA NINO on 02/20/22 155 Phenazopyridine HCl (Pyridium) 100 Mg Tablet, 100 MG PO BID Prescribed by: ROSS CARROLL on 10/15/20 1221 Prednisone (Prednisone) 20 Mg Tab, 20 MG PO DAILY Prescribed by: VERONICA NINO on 02/20/22 1553 [Smz/Tmp] , (Reported) Entered as Reported by: JETHRO CRAIG on 12/21/19 5119 Review of Systems Constitutional: see HPI (VERONICA NINO APRN) Past Wlqrquq-Fhobzz-Gbvioe Hx Patient Social History Tobacco Use?: Yes Tobacco type used: Cigarettes Smoking Status: Current Everyday Smoker Substance use?: No Alcohol Use?: Yes Alcohol Frequency: Once in a while Pt feels they are or have been: No (VERONICA NINO APRN) Immunizations Up To Date Tetanus Booster (TDap): Less than 5yrs Influenza Vaccine Up-to-Date: No; Not Current (VERONICA NINO APRN) Seasonal Allergies Seasonal Allergies: No (VERONICA NINO APRN) Past Medical History Surgery/Hospitalization HX: chronic back pain x2, tubal ligation, hysterectomy, choley, gastric sleeve Surgeries: Yes (c/s x2) Section, Gallbladder, Hysterectomy, 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 Respiratory: No Currently Using CPAP: No Currently Using BIPAP: No Cardiac: No Neurological: No 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, 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 Sexually Transmitted Disease: No HIV/AIDS: No Genitourinary: No Gastrointestinal: No Musculoskeletal: No Endocrine: No HEENT: No Cancer: No Psychosocial: Yes ADD/ADHD, Anxiety, Depression Integumentary: No Blood Disorders: No (VERONICA NINO APRN) Family Medical History Family history: Gastrointestinal disease PATERNAL GRANDMOTHER, Onset:Unknown Family history: Hypertension 03 FATHER, Onset:Unknown No Pertinent Family Hx (VERONICA NINO APRN) Physical Exam Vital Signs Vital Signs - First Documented 02/20/22 14:38 Temp 35.0 Pulse 77 Resp 18 B/P (MAP) 124/79 (94) Pulse Ox 98 O2 Delivery Room Air (LUIS ROMAN MD) Vital Signs Capillary Refill : Less Than 3 Seconds (VERONICA NINO APRN) Height, Weight, BMI Height: 5'4.00" Weight: 230lbs. oz. [id number]; 26.00 BMI Method:Estimated General Appearance: No Apparent Distress, WD/WN HEENT: PERRL/EOMI, Normal ENT Inspection, Pharynx Normal Neck: Full Range of Motion, Normal Inspection, Non Tender, Supple Cardiovascular: Regular Rate, Rhythm, No Murmur, Normal Peripheral Pulses Respiratory: Lungs Clear, Normal Breath Sounds, No Accessory Muscle Use Gastrointestinal: Normal Bowel Sounds, Non Tender, Soft Back: No Decreased Range of Motion; Vertebral Tenderness (Lumbar spine) Extremity: Normal Capillary Refill, Normal Inspection, Normal Range of Motion Neurologic/Psychiatric: Alert, Oriented x3, No Motor/Sensory Deficits, Normal Mood/Affect Skin: Normal Color, Warm/Dry (VERONICA NINO APRN) Progress/Results/Core Measures Results/Orders Vital Signs/I&O 02/20/22 02/20/22 14:38 15:59 Temp 35.0 Pulse 77 57 Resp 18 18 B/P (MAP) 124/79 (94) 129/72 Pulse Ox 98 100 O2 Delivery Room Air Room Air (LUIS ROMAN MD) Blood Pressure Mean: 94 Progress Progress Note : Progress Note Patient examined in no acute distress. We will go ahead and obtain CT imaging of her lumbar spine. We will trial Toradol 30 mg IM for pain. (VERONICA NINO APRN) Departure Impression Primary Impression: Lumbar radiculopathy Disposition: 01 HOME, SELF-CARE Condition: Improved Departure-Patient Inst. Decision time for Depature: 15:51 (VERONICA NINO APRN) Referrals: ARMANI GONZALEZ (PCP) Primary Care Physician NO,LOCAL PHYSICIAN (Family) Primary Care Physician Patient Instructions: Radiculopathy Add. Discharge Instructions: Plan: 1. May take Tylenol as needed for pain per package. You can take Hydrocodone every 6 hours as needed for severe breakthrough pain, do not exceed more than 3000 mg of Tylenol in 24 hours. 2. Take Steroids daily with food to prevent GI upset. 3. Have close follow-up with your primary care provider if you have persistent symptoms may benefit from MRI imaging. 4. Return to the ER for any new, concerning, worsening symptoms. All discharge instructions reviewed with patient and/or family. Voiced understanding. Scripts Prednisone (Prednisone) 20 Mg Tab 20 MG PO DAILY for 5 Days, #5 TAB 0 Refills Prov: VERONICA NINO APRN 02/20/22 Hydrocodone/Acetaminophen (Hydrocodone-Acetamin 5-325 mg) 5 Mg-325 Mg Tablet 1 TAB PO Q6H PRN for PAIN-MODERATE (5-7), #10 TAB 0 Refills Prov: VERONICA NINO APRN 02/20/22 ATTENDING PHYSICIAN NOTE: I was physically present as attending physician in the emergency department during the care of this patient, but I was not directly involved in the decision making or delivery of care for this patient. (LUIS ROMAN MD) VERONICA NINO APRN Feb 20, 2022 15:16 LUIS ROMAN MD Feb 22, 2022 07:12
--- NOTE | 2022-02-20 15:36 | Diagnostic Imaging Report ---
PROCEDURE: CT lumbar spine without contrast. TECHNIQUE: Multiple contiguous axial images were obtained through the lumbar spine without the use of intravenous contrast. Sagittal and coronal reformations were then performed. Auto Exposure Controls were utilized during the CT exam to meet ALARA standards for radiation dose reduction. INDICATION: Remote spinal injury, recent aggravation and progressive pain. COMPARISON: Exam correlated with abdominopelvic CT of 09/28/2021. FINDINGS: Some mild leftward convexity upper lumbar scoliotic curvature, stable. No anterior or posterior listhesis. The lumbar statures are within normal limits. No fracture. No paravertebral mass, hemorrhage, or fluid collection. No substantial canal, foraminal, or recess stenosis. IMPRESSION: Unremarkable appearance of the lumbar spine. No acute or chronic fracture, stenosis, or malalignment. Dictated by: Dictated on workstation # [id number]
[2022-02-20] MEDS ORDERED: PRD20T PO (15:53)
[2022-02-20] MEDS ORDERED: ACHD5005 PO (15:53)
[2022-02-20 15:59] VITALS: BP 129/72
== END 2022-02-20 15:59 | disposition home or self-care (01) ==
LOC: EDUNIT# 14:33 → ER 14:35
DX: M54.16 Radiculopathy, lumbar region (principal); F17.210 Nicotine dependence, cigarettes, uncomplicated; Z88.5 Allergy status to narcotic agent; Z28.310 Unvaccinated for COVID-19
CPT/HCPCS: 72131

== ENCOUNTER 2022-04-21 07:05 | Emergency (ER) | payer MEDICAID ==
[~2022-04-21] VITALS: Ht 162.5 cm; Wt 70.5 kg
[2022-04-21] MEDS ORDERED: TETANUS,DIPTH,PERTUSS P/F (BOOSTRIX) 0.5 ML VIAL IM ONE (07:30)
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
--- NOTE | 2022-04-21 08:47 | Diagnostic Imaging Report ---
PROCEDURE: CT head, face, and cervical spine without contrast. TECHNIQUE: Multiple contiguous axial images were obtained through the head, neck, and facial bones without the use of intravenous contrast. Sagittal and coronal reformations through the cervical spine and facial bones were also performed. Auto Exposure Controls were utilized during the CT exam to meet ALARA standards for radiation dose reduction. INDICATION: Altercation. COMPARISON: Correlation is made to the prior CT of 03/14/2018. FINDINGS: CT HEAD: The ventricles and sulci are stable. There is no sulcal effacement or midline shift. No acute intra-axial or extra-axial hemorrhage is detected. The cisterns are patent. The visualized paranasal sinuses are clear. IMPRESSION: No acute intracranial process is detected. CT CERVICAL SPINE: There is slight reversal of the normal cervical lordotic curvature. No fracture or subluxation is identified. The prevertebral tissues are within normal limits. The odontoid is intact. IMPRESSION: No acute bony abnormality is detected. CT FACE: The mandible is intact. The zygomatic arches are intact. The maxillary sinus peguero and orbital peguero appear to be intact. The visualized paranasal sinuses are clear. The mastoids are well aerated. The nasal bones are intact. IMPRESSION: No facial bone fracture is identified. Dictated by: Dictated on workstation # [id number]
[2022-04-21 09:13] VITALS: BP 118/80
== END 2022-04-21 09:13 | disposition home or self-care (01) ==
LOC: EDUNIT# 07:05 → ER 07:09
DX: S06.0X0A Concussion without loss of consciousness, initial encounter (principal); S00.83XA Contusion of other part of head, initial encounter; H11.32 Conjunctival hemorrhage, left eye; F17.290 Nicotine dependence, other tobacco product, uncomplicated; Z23 Encounter for immunization; Y04.0XXA Assault by unarmed brawl or fight, initial encounter
CPT/HCPCS: 70450; 70486; 72125; 90715

== ENCOUNTER 2022-06-23 21:29 | Emergency (ER) | payer MEDICAID ==
[~2022-06-23] VITALS: Ht 162.6 cm; Wt 70.3 kg
[2022-06-23 21:55] VITALS: BP_SYST 107; BP_SYST 112; BP_SYST 115; BP_DIAS 64; BP_DIAS 69; BP_DIAS 75
--- NOTE | 2022-06-23 21:55 | ED Cardiac General ---
History of Present Illness General Chief Complaint: Cardiac/General Problems Stated Complaint: HEART RACING Source: patient Exam Limitations: no limitations (EBONY TALBOT APRN) History of Present Illness Date Seen by Provider: Jun 23, 2022 Time Seen by Provider: 21:41 Initial Comments 26-year-old female presents to the ED with complaints of lightheadedness and tachycardia. States that she went on a 3 mile walk this morning and the lightheadedness started after this. Reports the lightheadedness is intermittent. States she went to the [place], and got up and felt like she was going to pass out. She checked her heart rate on her watch which said it was over 130. States when she got to the ER her watch told her her heart rate was 120. She also complained of a headache for the last 3 days. She stat es she drinks a lot of water. Patient had a Holter monitor evaluation done in July 2021 for similar symptoms. It showed sinus rhythm with PVCs, and short episode of sinus arrhythmia without significant pauses, and several episodes of sinus tachycardia. Denies fever, chest pain, shortness of air, abdominal pain, nausea, vomiting, diarrhea. Past medical history includes social anxiety which she takes medication for. She also has a hormone patch because she has had a hysterectomy. (EBONY TALBOT APRN) Allergies and Home Medications Allergies Coded Allergies: morphine (Verified Allergy, Unknown, ITCHING, 11/23/19) Patient Home Medication List Home Medication List Reviewed: Yes (EBONY TALBOT APRN) Cefuroxime Axetil (Cefuroxime) 500 Mg Tablet, 500 MG PO BID Prescribed by: RSOS CARROLL on 10/15/20 1219 Cephalexin (Cephalexin) 500 Mg Tablet, 500 MG PO QID Prescribed by: ANDIE BORJAS on 09/18/21 1830 Clotrimazole/Betamethasone Dip (Clotrimazole-Betamethasone Crm) 15 Gm Cream..g., (Reported) Entered as Reported by: JETHRO CRAIG on 12/21/192205 Hydrocodone/Acetaminophen (Hydrocodone-Acetamin 5-325 mg) 5 Mg-325 Mg Tablet, 1 TAB PO Q6H PRN for PAIN-MODERATE (5-7) Prescribed by: VERONICA NINO on 02/20/22 1553 Phenazopyridine HCl (Pyridium) 100 Mg Tablet, 100 MG PO BID Prescribed by: ROSS CARROLL on 10/15/20 1221 Prednisone (Prednisone) 20 Mg Tab, 20 MG PO DAILY Prescribed by: VERONICA NINO on 02/20/22 1553 [Smz/Tmp] , (Reported) Entered as Reported by: JETHRO CRAIG on 12/21/19 2206 Review of Systems Review of Systems Constitutional: see HPI (EBONY TALBOT APRN) Past Kozpfkg-Nqqijb-Xlzruh Hx Patient Social History Tobacco Use?: No Use of E-Cig and/or Vaping dev: Yes E-Cig or Vaping type used: Nicotine Use of E-Cig and/or Vaping Ramu: Current Everyday User Substance use?: No Alcohol Use?: No Pt feels they are or have been: No (EBONY TALBOT APRN) Immunizations Up To Date Tetanus Booster (TDap): Less than 5yrs Influenza Vaccine Up-to-Date: No; Not Current First/Initial COVID19 Vaccinat: DECLINED (EBONY TALBOT APRN) Seasonal Allergies Seasonal Allergies: No (EBONY TALBOT APRN) Past Medical History Surgery/Hospitalization HX: chronic back pain, anxiety x2, tubal ligation, hysterectomy, monik, gastric sleeve Surgeries: Yes (c/s x2) Section, Gallbladder, Hysterectomy, 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 Respiratory: No Currently Using CPAP: No Currently Using BIPAP: No Cardiac: No Neurological: No 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 Disorders: No 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, 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 Sexually Transmitted Disease: No HIV/AIDS: No Genitourinary: No Gastrointestinal: No Musculoskeletal: No Endocrine: No HEENT: No Cancer: No Psychosocial: Yes ADD/ADHD, Anxiety, Depression Integumentary: No Blood Disorders: No (EBONY TALBOT APRN) Family Medical History Family history: Gastrointestinal disease PATERNAL GRANDMOTHER, Onset:Unknown Family history: Hypertension 03 FATHER, Onset:Unknown No Pertinent Family Hx (EBONY TALBOT APRN) Physical Exam Vital Signs Vital Signs - First Documented 06/23/22 21:33 Temp 36.8 Pulse 101 Resp 18 B/P (MAP) 119/78 (92) Pulse Ox 100 O2 Delivery Room Air (AZUCENA HERNANDEZ DO) Vital Signs Capillary Refill : (EBONY TALBOT APRN) Height, Weight, BMI Height: 5'4.00" Weight: 230lbs. oz. 104.037244uh; 26.00 BMI Method:Estimated General Appearance: No Apparent Distress, WD/WN HEENT: PERRL/EOMI, TMs Normal Neck: Full Range of Motion, Normal Inspection, Supple Respiratory: Lungs Clear, Normal Breath Sounds, No Accessory Muscle Use, No Respiratory Distress Cardiovascular: Regular Rate, Rhythm, No Edema, No Gallop, No JVD, No Murmur Extremity: Normal Inspection, Normal Range of Motion Neurologic/Psychiatric: Alert, Oriented x3, Normal Mood/Affect, flat finisher II-XII Norm as Tested (Reported sensation difference in face, touch felt in left side more than the right side) Skin: Warm/Dry, Erythema (Face appears flushed) (EBONY TALBOT APRN) Progress/Results/Core Measures Results/Orders Lab Results Laboratory Tests Test 06/23/22 21:40 Range/Units White Blood Count 6.2 4.3-11.0 10^3/uL Red Blood Count 4.11 3.80-5.11 10^6/uL Hemoglobin 12.9 11.5-16.0 g/dL Hematocrit 37 35-52 % Mean Corpuscular Volume 90 80-99 fL Mean Corpuscular Hemoglobin 31 25-34 pg Mean Corpuscular Hemoglobin Concent 35 32-36 g/dL Red Cell Distribution Width 12.1 10.0-14.5 % Platelet Count 220 130-400 10^3/uL Mean Platelet Volume 11.4 9.0-12.2 fL Immature Granulocyte % (Auto) 0 % Neutrophils (%) (Auto) 49 42-75 % Lymphocytes (%) (Auto) 36 12-44 % Monocytes (%) (Auto) 9 0-12 % Eosinophils (%) (Auto) 5 0-10 % Basophils (%) (Auto) 1 0-10 % Neutrophils # (Auto) 3.0 1.8-7.8 10^3/uL Lymphocytes # (Auto) 2.2 1.0-4.0 10^3/uL Monocytes # (Auto) 0.6 0.0-1.0 10^3/uL Eosinophils # (Auto) 0.3 0.0-0.3 10^3/uL Basophils # (Auto) 0.1 0.0-0.1 10^3/uL Immature Granulocyte # (Auto) 0.0 0.0-0.1 10^3/uL Sodium Level 145 135-145 MMOL/L Potassium Level 3.2 L 3.6-5.0 MMOL/L Chloride Level 111 H 98-107 MMOL/L Carbon Dioxide Level 21 21-32 MMOL/L Anion Gap 13 5-14 MMOL/L Blood Urea Nitrogen 18 7-18 MG/DL Creatinine 0.70 0.60-1.30 MG/DL Estimat Glomerular Filtration Rate 121 BUN/Creatinine Ratio 26 Glucose Level 143 H 70-105 MG/DL Calcium Level 9.1 8.5-10.1 MG/DL Corrected Calcium 8.5-10.1 MG/DL Magnesium Level 2.0 1.6-2.4 MG/DL Total Bilirubin 0.1 0.1-1.0 MG/DL Aspartate Amino Transf (AST/SGOT) 21 5-34 U/L Alanine Aminotransferase (ALT/SGPT) 21 0-55 U/L Alkaline Phosphatase 43 40-136 U/L Total Protein 7.3 6.4-8.2 GM/DL Albumin 4.6 H 3.2-4.5 GM/DL Thyroid Stimulating Hormone (TSH) 0.60 0.35-4.94 UIU/ML ([facility]) Vital Signs/I&O 06/23/22 06/23/22 21:33 21:55 Temp 36.8 Pulse 101 81 95 102 Resp 18 B/P (MAP) 119/78 (92) 107/64 (78) 115/69 (84) 112/75 (87) Pulse Ox 100 O2 Delivery Room Air ([facility]) Progress Progress Note : Time: 21:58 Progress Note Patient seen and evaluated, resting comfortably in bed, no acute distress. Based on exam and symptoms, work-up initiated including CBC, CMP, magnesium, TSH, EKG, orthostatic vitals. IV fluids and Toradol ordered. (EBONY TALBOT APRN) Initial ECG Impression Date: Jun 23, 2022 Initial ECG Impression Time: 21:34 Initial ECG Rate: 102 Initial ECG Rhythm: S.Tach Initial ECG Intervals: Normal Initial ECG Impression: Nonspecific Changes Initial ECG Comparisson: No Previous ECG Available Comment Insignificant Q waves lead I, 2, aVF, aVL. No ST elevation, no T wave inversion. (EBONY TALBOT APRN) Departure Communication (Admissions) Patient is hemodynamically stable though slightly tachycardic. She was orthostatic and was given IV fluids. Her tachycardia did improve with this. EKG is sinus. Independently reviewed by self. Electrolytes are unremarkable. She is not anemic. (AZUCENA HERNANDEZ DO) Impression Primary Impression: Sinus tachycardia Disposition: HOME, SELF-CARE Condition: Stable Departure-Patient Inst. Referrals: ARMANI GONZALEZ (PCP) Primary Care Physician RADHA SETHI MD Patient Instructions: Tachycardia (DC) Add. Discharge Instructions: She fluids at home, rest. Return to the emergency department. Severe concerns. Follow-up with cardiology by calling to schedule an appointment. Primary doct or should be able to treat your symptoms until you get into see a generation engineering technologist. All discharge instructions reviewed with patient and/or family. Voiced understanding. EBONY TALBOT APRN Jun 23, 2022 21:55 AZUCENA HERNANDEZ DO Jun 23, 2022 22:36
[2022-06-23 21:57] LABS: BASOPHILS # (AUTO) 0.1 10^3/uL (0.0-0.1); BASOPHILS % (AUTO) 1 % (0-10); EOSINOPHILS # (AUTO) 0.3 10^3/uL (0.0-0.3); EOSINOPHILS % (AUTO) 5 % (0-10); HEMATOCRIT 37 % (35-52); HEMOGLOBIN 12.9 g/dL (11.5-16.0); LYMPHOCYTES # (AUTO) 2.2 10^3/uL (1.0-4.0); LYMPHOCYTES % (AUTO) 36 % (12-44); MEAN CORPUSCULAR HEMOGLOBIN 31 pg (25-34); MEAN CORPUSCULAR HGB CONC 35 g/dL (32-36); MEAN CORPUSCULAR VOLUME 90 fL (80-99); MEAN PLATELET VOLUME 11.4 fL (9.0-12.2); MONOCYTES # (AUTO) 0.6 10^3/uL (0.0-1.0); MONOCYTES % (AUTO) 9 % (0-12); NEUTROPHILS % (AUTO) 49 % (42-75); PLATELET COUNT 220 10^3/uL (130-400); WHITE BLOOD COUNT 6.2 10^3/uL (4.3-11.0)
[2022-06-23] MEDS ORDERED: KETOROLAC 15 MG/ML VIAL IVP ONE (22:00)
[2022-06-23 22:01] LABS: ALBUMIN 4.6 GM/DL (3.2-4.5); CHLORIDE 111 MMOL/L (98-107); POTASSIUM 3.2 MMOL/L (3.6-5.0); SODIUM 145 MMOL/L (135-145)
[2022-06-23 22:02] LABS: CALCIUM 9.1 MG/DL (8.5-10.1)
[2022-06-23 22:03] LABS: GLUCOSE 143 MG/DL (70-105); TOTAL PROTEIN 7.3 GM/DL (6.4-8.2)
[2022-06-23 22:04] LABS: CARBON DIOXIDE 21 MMOL/L (21-32)
[2022-06-23 22:05] LABS: BILIRUBIN,TOTAL 0.1 MG/DL (0.1-1.0)
[2022-06-23 22:07] LABS: ALKALINE PHOSPHATASE 43 U/L (40-136); GFR ESTIMATED 121
[2022-06-23 22:08] LABS: BUN/CREATININE RATIO 26
[2022-06-23 22:10] LABS: ALANINE AMINOTRANSFERASE 21 U/L (0-55)
[2022-06-23 22:47] VITALS: BP 94/65
== END 2022-06-23 22:58 | disposition home or self-care (01) ==
LOC: EDUNIT# 21:29 → ER 21:30
DX: R00.0 Tachycardia, unspecified (principal); F17.290 Nicotine dependence, other tobacco product, uncomplicated; Z28.310 Unvaccinated for COVID-19
CPT/HCPCS: 36415; 80053; 83735; 84443; 85025; 93005; 93041

== ENCOUNTER → 2022-09-21 | Outpatient (CLI) | payer MEDICAID | LOC: CARD 10:30 | PROVIDERS: ATTEND Internal Medicine Cardiovascular Disease | DX: R00.2 Palpitations (principal) | CPT/HCPCS: 93306 ==